=== PATIENT | male | born 1955 | race Caucasian/White ===

== ENCOUNTER 2020-04-03 21:54 | Emergency (ER) | payer MEDICARE, SELFPAY ==
--- NOTE | ~2020-04-03 | XR_ITS ---
EXAMINATION: XR knee RT 3V DATE: 04/03/2020 23:39 INDICATION: Nontraumatic medial and lateral right knee pain TECHNIQUE: Anteroposterior, 2 oblique and crosstable lateral views of the right knee were obtained COMPARISON: None. FINDINGS: Alignment is normal. No fracture. Joint spaces appear normal on nonweightbearing imaging. Tiny ossif ication along the lateral side of the lateral femoral condyle which could represent sequela of old tr auma. Minimal right knee joint effusion at the suprapatellar pouch without layering lipohemarthrosis. Vascular stent posterior to the proximal right tibia. Soft tissues are otherwise unremarkable. IMPRESSION: 1. No osseous abnormality. Reviewed, dictated and finalized at location A. IMPRESSION: 1. No osseous abnormality.
[2020-04-03 22:16] VITALS: BP 194/91; PULSE 72; RESP 14; TEMP 37.1; O2SAT 97
--- NOTE | 2020-04-03 22:18 | ED.EXTPRO ---
HPI - Extremity Problem General Chief complaint: Extremity Injury, Lower Stated complaint: R leg pain Time Seen by Provider: 04/03/20 22:18 Source: patient Mode of arrival: wheelchair Limitations: no limitations History of Present Illness HPI Narrative: 64-year-old man with a history of peripheral vascular disease with stents comes in today complaining of pain behind his right knee, down his calf and throbbing in his foot that started approximately 7 hours ago. Patient states that he was walking when the pain started. He did not feel a pop. States that the pain is worsened by ambulation and movement. One year ago he had stents in his right leg for peripheral vascular disease. Until this afternoon he was doing fine including working around the house this morning. He denies any falls or injuries. MD Complaint: extremity pain Onset (ago): hour(s) (6-7) Pain Consistency: constant Location: right and lower extremity Quality: sharp Radiation: distal Relieving factors: rest Exacerbating factors: range of motion and weight bearing Associated symptoms: chest pain and shortness of breath Context: history of peripheral vascular disease Related Data Home Medications Medication Instructions Recorded Confirmed B Complex-Vitamin B12 1 cap BYMOUTH DAILY 04/03/20 04/03/20 aspirin 81 mg PO DAILY 04/03/20 04/03/20 finasteride 5 mg PO DAILY 04/03/20 04/03/20 glimepiride 1 mg PO DAILY 04/03/20 04/03/20 lamotrigine 200 mg PO DAILY 04/03/20 04/03/20 levothyroxine [Euthyrox] 75 mcg PO DAILY 04/03/20 04/03/20 metoprolol succinate 100 mg PO DAILY 04/03/20 04/03/20 rosuvastatin 5 mg PO HS 04/03/20 04/03/20 Allergies Allergy/AdvReac Type Severity Reaction Status Date / Time No Known Allergies Allergy Verified 04/03/20 22:22 Review of Systems Constitutional: Constitutional: Denies chills, Denies fever(s) and Denies weakness Cardiovascular: Cardiovascular: Denies chest pain and Denies radiating jaw, neck or arm pain Respiratory: Respiratory: Denies cough and Denies dyspnea Musculoskeletal: Musculoskeletal: Reports as per HPI, Reports arthralgias and Denies joint swelling Integumentary/Breasts: Skin/Breast: Denies pruritus, Denies erythema and Denies rash Neurologic: Denies vertigo, Denies dizziness, Denies syncope and Reports numbness (on plantar aspect of right distal foot) Psychiatric: Psychiatric: Denies anxiety and Denies depression Hematologic/Lymphatic: Hematologic/Lymphatic: Denies easy bleeding and Denies easy bruising Allergic/Immunologic: Allergic/Immunologic: Denies lip swelling and Denies wheezing PMFSH Past Medical History Medical History BPH (benign prostatic hyperplasia) Dyslipidemia Hypertension Hypothyroidism Peripheral vascular disease Type 2 diabetes mellitus Surgical History Surgical History Popliteal artery stenosis Stent Social History Social History Smoking status: Former smoker Exam Const: General: alert Orientation/consciousness: patient oriented x3 Limitations: no limitations Other: Moderate acute distress. Eyes: Conjunctivae: conjunctivae normal Pupils: Equal, round and reactive pupils present EOM: EOMs intact bilaterally Resp: Effort & Inspection: normal respiratory effort and not labored Auscultation: clear to auscultation bilaterally, no rales, no rhonchi and no wheezes Cardio: Rate: regular rate Rhythm: regular rhythm Heart sounds: no murmurs Skin: General skin exam: normal color, no jaundice and no pallor Rashes: no rashes Neuro: General: patient oriented x3, moves all extremities, no focal motor deficits and CN's II-XI intact bilaterally Speech: normal speech Extrem: General: normal to inspection and no clubbing, cyanosis or edema Other: Distal lower extremities are warm dry and have 2nd capillary refi
[2020-04-03 22:45] LABS: Basophils Absolute Auto 0.06 K/mm3 (0.00-0.10); Basophils Percent Auto 0.8 % (0.0-1.0); Eosinophils Absolute Auto 0.17 K/mm3 (0.02-0.50); Eosinophils Percent Auto 2.2 % (1.0-6.0); Hematocrit 43.6 % (37.0-46.0); Hemoglobin 14.8 g/dL (12.4-15.3); Immature Granulocyte Absolute 0.02 K/mm3 (0.00-0.00); Immature Granulocyte Percent A 0.3 % (0.0-0.0); Lymphocytes Absolute Auto 1.27 K/mm3 (1.10-4.50); Lymphocytes Percent Auto 16.2 % (18.0-42.0); Mean Corpuscular HGB Conc 33.9 g/dL (32.0-36.0); Mean Corpuscular Hemoglobin 33.4 pg (27.0-31.0); Mean Corpuscular Volume 98.4 fL (78.0-102.0); Mean Platelet Volume 9.4 fl (8.7-11.0); Monocytes Absolute Auto 0.57 K/mm3 (0.10-0.90); Monocytes Percent Auto 7.3 % (2.0-11.0); Neutrophils Absolute Auto 5.8 K/mm3 (1.7-7.2); Neutrophils Percent Auto 73.2 % (50.0-70.0); Platelet Count Result 214 K/mm3 (150-420); Red Blood Count 4.43 M/mm3 (4.70-6.10); Red Cell Distribution Width 12.5 % (11.6-14.4); White Blood Count 7.8 K/mm3 (4.8-10.8)
[2020-04-03 23:00] LABS: Alanine Aminotransferase 23 U/L (16-63); Albumin Level 3.5 g/dL (3.4-5.0); Alkaline Phosphatase 105 U/L (46-116); Anion Gap 12.1 mmol/L (7-16); Aspartate Amino Transferase 15 U/L (15-37); Bilirubin,Total 0.3 mg/dL (0.00-1.00); Blood Urea Nitrogen 23 mg/dL (7-18); Calcium 8.6 mg/dL (8.5-10.1); Carbon Dioxide 29 mmol/L (21-32); Chloride 104 mmol/L (98-108); Estimated CRCL calculation 68 ml/min; Estimated Glomerular Filt Rate > 60; Glucose 138 mg/dL (70-99); Osmolality Calculated 297 mOsm/kg (285-295); Potassium 4.1 mmol/L (3.5-5.1); Sodium 141 mmol/L (136-145); Total Protein 6.6 g/dL (6.4-8.2)
[2020-04-03 23:03] LABS: D Dimer 0.33 mg/L (0.19-0.50); Partial Thromboplastin Time 28.2 SEC (22.3-31.6); Prothrombin Time 10.6 Seconds (9.64-11.0)
--- NOTE | 2020-04-03 23:14 | PC.NURSE ---
DR. JACOBS, VASCULAR SURGEON FROM [facility], CONTACTED AT THIS TIME INSTRUCTED BY ERP.
[2020-04-03 23:33] VITALS: BP 170/74; PULSE 63; RESP 18; O2SAT 96
[2020-04-03 23:35] LABS: CRP 0.4 mg/dL (0.0-0.9)
[2020-04-04 00:10] VITALS: BP 175/80; PULSE 85; RESP 20; TEMP 36.6; O2SAT 97
== END 2020-04-04 00:26 | disposition home or self-care (01) ==
PROVIDERS: Emergency Provider Emergency Medicine; PCP Internal Medicine
DX: M25.561 Pain in right knee (principal)
CPT/HCPCS: 36415; 73562; 80053; 85025; 85380; 85610; 85730; 86140; 99283; 99284; A9270

== ENCOUNTER 2020-10-13 12:38 | Outpatient (CLI) | payer MEDICARE, SELFPAY ==
[2020-10-14 18:38] LABS: SARS-CoV-2 RNA PCR Negative
== END 2020-10-13 12:39 | disposition home or self-care (01) ==
LOC: CHSLAB 12:45
PROVIDERS: PCP Internal Medicine
DX: Z20.828 Contact with and (suspected) exposure to other viral communicable diseases (principal)
CPT/HCPCS: 87635; C9803; U0003

== ENCOUNTER 2021-05-24 06:54 | Outpatient (CLI) | payer MEDICARE, SELFPAY ==
--- NOTE | ~2021-05-24 | MR_ITS ---
EXAMINATION: MR brain/brain stem wo/w con DATE: 05/24/2021 08:51 INDICATION: Diplopia. Visual field defect. TECHNIQUE: Magnetic resonance imaging (MRI) of the brain and brainstem was performed without and with 20 mL MultiHance intravenous contrast. Sequences included sagittal and axial T1-weighted FSE, axial diffusion-weighted FS EPI, axial T2*-weighted GRE, axial T2-weighted FLAIR Propeller, and axial T2-we ighted Propeller. Postcontrast sequences included axial and coronal T1-weighted FSE. Apparent diffusi on coefficient (ADC) maps were created. COMPARISON: Brain MRI 02/27/2012 FINDINGS: There are scattered areas of nonspecific increased T2-weighted signal intensity in the cere bral white matter, which is within normal limits for the patient's age. 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 There is no intracranial hemorrhage, acute infarction, or abnormal in tracranial mass lesion. The ventricles are normal in size. The orbits are normal. The mastoid air july ls are normal. The paranasal sinuses are clear. IMPRESSION: 1. 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 Reviewed, dictated and finalized at location A.
[2021-05-24 07:31] LABS: Estimated Glomerular Filt Rate > 60
== END 2021-05-24 06:55 | disposition home or self-care (01) ==
LOC: CHSIMG 06:59
PROVIDERS: PCP Internal Medicine; Visit Provider Internal Medicine
DX: H53.2 Diplopia (principal); H53.40 Unspecified visual field defects
CPT/HCPCS: 70553; A9577

== ENCOUNTER 2021-06-28 08:06 | Outpatient (CLI) | payer MEDICARE, SELFPAY ==
--- NOTE | ~2021-06-28 | US_ITS ---
US right upper quadrant INDICATION: Epigastric and right upper quadrant pain PROCEDURE: Realtime right upper abdominal ultrasound. COMPARISON: Ultrasound dated 11/05/2016 FINDINGS: The pancreas is normal without focal mass or pancreatic ductal dilation. Liver echotexture is normal without focal mass or intrahepatic biliary dilatation. There is normal directional flow i n the portal vein. The gallbladder is normal without stones, gallbladder wall thickening or pericholecystic fluid. Comm on bile duct measures 2.3 mm. No sonographic Mcmullen's sign. IMPRESSION: 1: Normal limited abdominal ultrasound. Reviewed, dictated and finalized at location A.
== END 2021-06-28 08:07 | disposition home or self-care (01) ==
LOC: CHSIMG 08:07
PROVIDERS: PCP Internal Medicine; Visit Provider Internal Medicine
DX: R10.13 Epigastric pain (principal)
CPT/HCPCS: 76705

== ENCOUNTER 2021-06-30 07:42 | Outpatient (CLI) | payer MEDICARE, SELFPAY ==
--- NOTE | ~2021-06-30 | US_ITS ---
CANCELED REPORT Report moved to [id number], DOS 06/28/2021 06/30/2021 sef Addendum: Additional views of the abdomen were performed. Gallbladder is contracted, although no stones, gallbladder wall thickening or pericholecystic fluid are identified. Common bile duct measures 3 mm. Visualized aspects of the pancreas are unremarkable. There is normal directional flow in the portal vein. Findings confirm prior report from 06/28/2021. Reviewed, dictated and finalized at location A. FREDIS
== END 2021-06-30 07:43 | disposition home or self-care (01) ==
LOC: CHSIMG 07:44
PROVIDERS: PCP Internal Medicine; Visit Provider Internal Medicine
DX: R10.13 Epigastric pain (principal); R10.11 Right upper quadrant pain; Z53.8 Procedure and treatment not carried out for other reasons
CPT/HCPCS: 99199

== ENCOUNTER 2022-04-23 15:01 | Emergency (ER) | payer MEDICARE, SELFPAY ==
--- NOTE | ~2022-04-23 | XR_ITS ---
XR chest 1V portable 04/23/2022 16:19 Indication: Shortness of breath with hypertension Procedure: AP portable chest Comparison: Comparison to multiple prior studies sequentially, with oldest reviewed study dated 11/24. Findings: Borderline heart size. Right basilar infiltrates and small right pleural effusion/pleural t hickening unchanged. No acute focal pneumonia, edema or effusion. Calcified granuloma left mid thorax . Impression: 1: No acute cardiopulmonary disease. 2: Chronic right basilar infiltrates, likely atelectasis/scarring. Reviewed, dictated and finalized at location A. Impression: 1: No acute cardiopulmonary disease. 2: Chronic right basilar infiltrates, likely atelectasis/scarring.
[2022-04-23 15:10] VITALS: BP 185/98; PULSE 60; RESP 16; TEMP 36.2; O2SAT 96
--- NOTE | 2022-04-23 15:26 | ED.GENADULT ---
HPI - General Adult General Chief complaint: Unspecified Stated complaint: sent by doctor for high blood pressure Time Seen by Provider: 04/23/22 15:26 Source: patient Mode of arrival: ambulatory History of Present Illness HPI narrative: 66-year-old male with a history of hypertension, diabetes mellitus, dyslipidemia, LADONNA on CPAP, peripheral vascular disease status post bilateral leg stents, status post right carotid endarterectomy, with claudication of the left lower extremity and awaiting a vascular bypass surgery of the left lower extremity was noted to -- elevated blood pressure readings. It was noted to be around 200/100. The patient has had high blood pressure readings for the past 7-10 days. -- Shortness of breath. The patient was noted to have an oxygen saturation of -- no chest pain. Onset (ago): day(s) ( Off and on for the past 10 days) Related Data Home Medications Medication Instructions Recorded Confirmed B Complex-Vitamin B12 1 cap BYMOUTH DAILY 04/03/20 04/23/22 aspirin 81 mg chewable tablet 81 mg PO DAILY 04/03/20 04/23/22 finasteride 5 mg tablet 5 mg PO DAILY 04/03/20 04/23/22 glimepiride 1 mg tablet 1 mg PO DAILY 04/03/20 04/23/22 lamotrigine 200 mg tablet 200 mg PO DAILY 04/03/20 04/23/22 levothyroxine 75 mcg tablet 75 mcg PO DAILY 04/03/20 04/23/22 (Euthyrox) metoprolol succinate 100 mg 100 mg PO DAILY 04/03/20 04/23/22 tablet,extended release 24 hr rosuvastatin 5 mg tablet 5 mg PO HS 04/03/20 04/23/22 clopidogrel 75 mg tablet (Plavix) 75 mg PO DAILY 06/07/21 04/23/22 Allergies Allergy/AdvReac Type Severity Reaction Status Date / Time No Known Allergies Allergy Verified 04/23/22 15:23 Review of Systems Review of Systems: All systems reviewed & are unremarkable except as noted in HPI and below Constitutional: Constitutional: Reports as per HPI and Reports no additional constitutional complaints Eyes: Eyes: Reports as per HPI and Reports no additional eye complaints ENT: Reports system reviewed and no additional complaints, except as documented and Reports as per HPI Cardiovascular: Cardiovascular: Reports as per HPI and Reports no additional cardiovascular complaints Respiratory: Respiratory: Reports as per HPI, Reports no additional respiratory complaints and Reports dyspnea Comments: Had difficulty using his CPAP machine secondary to congestion Gastrointestinal: Gastrointestinal: Reports as per HPI and Reports no additional gastrointestinal complaints Genitourinary: Genitourinary: Reports no additional male genitourinary complaints Musculoskeletal: Musculoskeletal: Reports no additional musculoskeletal complaints Integumentary/Breasts: Skin/Breast: Reports system reviewed and no additional complaints, except as docu and Reports as per HPI Neurologic: Reports system reviewed and no additional complaints, except as documented and Reports as per HPI Psychiatric: Psychiatric: Reports no additional psychiatric complaints and Reports as per HPI Endocrine: Endocrine: Reports no additional endocrine complaints and Reports as per HPI Hematologic/Lymphatic: Hematologic/Lymphatic: Reports no additional hematologic/lymphatic complaints and Reports as per HPI Allergic/Immunologic: Allergic/Immunologic: Reports no additional allergic/immunologic complaints and Reports as per HPI [facility] Past Medical History Medical History (Updated 04/23/22 @ 17:17 by Zachery Madera MD) BPH (benign prostatic hyperplasia) Dyslipidemia Hypertension Hypothyroidism Peripheral vascular disease Type 2 diabetes mellitus Surgical History Surgical History Popliteal artery stenosis Stent Social History Social History Smoking status: Former smoker Alcohol intake: current Exam Const: General: healthy appearing and no acute distress Nutritional Appearance: well nourished [place]
--- NOTE | 2022-04-23 15:44 | ECG_ITS ---
Measurements Intervals [place] Rate: 51 P: 38 IA: 181 QRS: 41 QRSD: 109 T: 35 QT: 422 QTc: 389 Interpretive Statements SINUS BRADYCARDIA DELAYED PRECORDIAL R/S TRANSITION BORDERLINE ECG Electronically Signed On 04-23-2022 16:56:55 CDT by Ronald Ferrer D.O.
[2022-04-23] MEDS: cloNIDine HCL 0.1 MG TABLET PO (16:04)
[2022-04-23 16:05] VITALS: BP 168/84; PULSE 61; RESP 16; O2SAT 97
[2022-04-23 16:09] LABS: Basophils Absolute Auto 0.05 K/mm3 (0.00-0.10); Eosinophils Absolute Auto 0.13 K/mm3 (0.02-0.50); Eosinophils Percent Auto 2.6 % (1.0-6.0); Hematocrit 43.9 % (37.0-46.0); Hemoglobin 14.4 g/dL (12.4-15.3); Immature Granulocyte Absolute 0.01 K/mm3 (0.00-0.00); Immature Granulocyte Percent A 0.2 % (0.0-0.0); Lymphocytes Absolute Auto 1.19 K/mm3 (1.10-4.50); Lymphocytes Percent Auto 23.8 % (18.0-42.0); Mean Corpuscular HGB Conc 32.8 g/dL (32.0-36.0); Mean Corpuscular Hemoglobin 32.3 pg (27.0-31.0); Mean Corpuscular Volume 98.4 fL (78.0-102.0); Monocytes Absolute Auto 0.47 K/mm3 (0.10-0.90); Monocytes Percent Auto 9.4 % (2.0-11.0); Neutrophils Absolute Auto 3.2 K/mm3 (1.7-7.2); Platelet Count Result 179 K/mm3 (150-420); Red Blood Count 4.46 M/mm3 (4.70-6.10); Red Cell Distribution Width 12.5 % (11.6-14.4)
[2022-04-23 16:31] LABS: Partial Thromboplastin Time 28.1 SEC (23.90-30.70); Prothrombin Time 11.4 Seconds (9.50-12.10)
[2022-04-23 16:34] LABS: Alanine Aminotransferase 33 U/L (16-63); Albumin Level 3.7 g/dL (3.4-5.0); Alkaline Phosphatase 73 U/L (46-116); Anion Gap 6 mmol/L (8-16); Aspartate Amino Transferase 12 U/L (15-37); Bilirubin,Total 0.7 mg/dL (0.00-1.00); Blood Urea Nitrogen 25 mg/dL (7-18); Calcium 8.7 mg/dL (8.5-10.1); Carbon Dioxide 28 mmol/L (21-32); Chloride 104 mmol/L (98-108); Estimated CRCL calculation 72 ml/min; Estimated Glomerular Filt Rate > 60; Glucose 118 mg/dL (70-99); NT Pro B Type Natriuretic Pept 45 pg/mL (0-125); Osmolality Calculated 291 mOsm/kg (285-295); Potassium 4.2 mmol/L (3.5-5.1); Sodium 138 mmol/L (136-145); Total Protein 6.7 g/dL (6.4-8.2)
[2022-04-23 16:37] LABS: Lactic Acid Reflex 0.9 mmol/L (0.4-2.0)
[2022-04-23 17:06] LABS: Troponin I 5.9 ng/L (0.00-60.4)
[2022-04-23 17:10] VITALS: BP 165/88; PULSE 59; RESP 16; TEMP 37; O2SAT 98
[2022-04-23 17:20] VITALS: BP 155/83; PULSE 59; RESP 16
== END 2022-04-23 17:30 | disposition home or self-care (01) ==
PROVIDERS: Emergency Provider Internal Medicine Critical Care Medicine; PCP Internal Medicine
DX: I73.9 Peripheral vascular disease, unspecified (principal); I16.0 Hypertensive urgency; R00.1 Bradycardia, unspecified; R06.02 Shortness of breath; E78.5 Hyperlipidemia, unspecified; E03.9 Hypothyroidism, unspecified; E11.9 Type 2 diabetes mellitus without complications; Z87.891 Personal history of nicotine dependence
CPT/HCPCS: 36415; 71045; 80053; 83605; 83880; 84443; 84484; 85025; 85610; 85730; 93005; 99284; A9270

== ENCOUNTER 2022-08-22 08:00 | Outpatient (RCR) | payer MEDICARE, SELFPAY | END 2022-08-22 14:37 | disposition home or self-care (01) | PROVIDERS: PCP Internal Medicine; Visit Provider Internal Medicine | DX: I70.213 Atherosclerosis of native arteries of extremities with intermittent claudication, bilateral legs (principal) | CPT/HCPCS: 93668; 93798 ==

== ENCOUNTER 2023-08-26 11:38 | Outpatient (CLI) | payer MEDICARE, SELFPAY ==
--- NOTE | ~2023-08-26 | NM_ITS ---
EXAMINATION: NM hepatobiliary w pharm DATE: 08/26/2023 14:25 INDICATION: Right upper quad abdominal pain COMPARISON: Outside dated 06/28/2021 TECHNIQUE: 4.9 mCi Tc-99m mebrofenin (Choletec) was administered intravenously. Scintigraphic images of the abdomen were obtained for one hour. 1.7 mcg sincalide (Kinevac) was administered by slow intr avenous infusion, and imaging was continued for 30 minutes. Gallbladder ejection fraction was calcula guillermo by the technologist. FINDINGS: There is normal clearance of radiotracer from the blood pool. There is homogeneous tracer uptake by t he liver. Activity progresses to the gallbladder and bowel. The gallbladder ejection fraction (GBEF) is 27% (normal 10-90%, but most patient with gallbladder dysfunction have GBEF < 35% which does over lap with the normal range). IMPRESSION: 1. Gallbladder ejection fraction is at the lower limits of normal. This could be normal but is also within the range of overlap with gallbladder dysfunction or chronic cholecystitis in the appropriate clinical setting. Reviewed, dictated and finalized at location A. 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
== END 2023-08-26 11:39 | disposition home or self-care (01) ==
LOC: CHSIMG 11:40
PROVIDERS: PCP Internal Medicine; Visit Provider Internal Medicine
DX: R10.11 Right upper quadrant pain (principal)
CPT/HCPCS: 78227; A9537; J2805

== ENCOUNTER 2023-09-12 03:05 | Day surgery (SDC) | payer MEDICARE, SELFPAY ==
[2023-09-02 10:57] VITALS: BMI 28.6
--- NOTE | 2023-09-10 12:53 | SUR.PREOP ---
Patient called regarding upcoming procedure. Message left on patient's voicemail regarding preop instructions, appointment times, and procedure prep.
[2023-09-12 08:35] VITALS: BP 155/92; PULSE 55; RESP 18; TEMP 36.1; O2SAT 95; BMI 29.6
[2023-09-12 08:58] LABS: Glucose Point of Care 148 mg/dl (65-105)
--- NOTE | 2023-09-12 09:50 | WPDANESEPPF ---
Anes - Initial Pre Proc Eval Procedure: Operation Date: 09/12/23 09:30 Proposed Procedures p Esophagogastroduodenoscopy - Andrey Quinn DO Date/Time: 09/12/23 09:50 Surgeon: Andrey Quinn DO Pre Op Diagnosis: Dysphagia Patient Data Age: 68 Gender: M Height: 1.75 m Weight: 91 kg Last Vital Signs Temp 96.9 F L 09/12/23 08:35 Pulse 55 L 09/12/23 08:35 Resp 18 09/12/23 08:35 BP 155/92 H 09/12/23 08:35 Pulse Ox 95 09/12/23 08:35 O2 Del Method Room Air 09/12/23 08:35 Allergies Allergy/AdvReac Type Severity Reaction Status Date / Time No Known Allergies Allergy Verified 09/12/23 08:41 Home Medications Medication Instructions Recorded Confirmed Type B Complex-Vitamin B12 1 cap BYMOUTH DAILY 04/03/20 09/12/23 History finasteride 5 mg tablet 5 mg PO DAILY 04/03/20 09/12/23 History lamotrigine 200 mg tablet 100 mg PO DAILY 04/03/20 09/12/23 History levothyroxine 75 mcg tablet 75 mcg PO DAILY 04/03/20 09/12/23 History (Euthyrox) metoprolol succinate 100 mg 50 mg PO DAILY 04/03/20 09/12/23 History tablet,extended release 24 hr rosuvastatin 5 mg tablet 2.5 mg PO HS 04/03/20 09/12/23 History clopidogrel 75 mg tablet (Plavix) 75 mg PO DAILY 06/07/21 09/12/23 History amlodipine 2.5 mg tablet (Norvasc) 5 mg PO DAILY 09/02/23 09/12/23 History metformin 500 mg tablet 500 mg PO DAILY 09/02/23 09/12/23 History Laboratory Tests 09/12/23 08:56 POC Capillary Glucose 148 H mg/dl (65-105) Patient hx anesthesia problems: none Family hx anesthesia problems: none Results Review: All pre-operative results and documents have been reviewed as part of the pre-operative evaluation. [facility] Past Medical History Medical History (Updated 04/24/22 @ 00:00 by Background Dabetty) BPH (benign prostatic hyperplasia) Dyslipidemia Hypertension Hypothyroidism Peripheral vascular disease Type 2 diabetes mellitus Surgical History Surgical History Popliteal artery stenosis Stent Social History Social History Smoking status: Never smoker Alcohol intake: current Alcohol use details: On rare occasions Substance use: current Substance use type: marijuana Other substance usage details: uses gummies Last use: 07/2023 Living arrangements: alone Anes - Eval Final PreProcedure Day of Procedure 09/12/23 09:50 Patient weight: normal Heart: regular rate and rhythm Lungs: clear to auscultation Airway: Mallampati scale class II Neurological: alert and oriented Last oral intake: >/= 8 hours ASA classification: III Emergent: no Anesthetic plan: proceed Anesthesia type and monitoring: general GIVS and standard monitoring Results Review: All pre-operative results and documents have been reviewed as part of the pre-operative evaluation. Informed Consent: The patient's anesthetic plan and its attendant risks and benefits were discussed with the patient/family/POA. Questions were solicited and answers provided to the satisfaction of the patient/family/POA.
[2023-09-12] MEDS: LACTATED RINGERS 1,000 ML 150 ML IV CONT (09:58)
--- NOTE | 2023-09-12 10:00 | PM.IMHP ---
H&P: HPI History of Present Illness Date/Time: 09/12/23 10:00 Chief Complaint: Dysphagia Narrative: This is a 68-year-old man presents for EGD. He has been experiencing some dysphagia with certain solid foods. He feels that it gets stuck his sternum. He has noticed this in particular with tuna and carrots. He denies any acid reflux or heartburn symptoms. Review of Systems Review of Systems: All systems reviewed & are unremarkable except as noted in HPI and below Constitutional: Constitutional: Denies chills, Denies fever(s), Denies headache(s) and Denies weight loss Eyes: Eyes: Denies change in vision ENT: Denies dizziness, Denies headache(s), Denies neck mass and Denies throat swelling Cardiovascular: Cardiovascular: Denies chest pain, Denies lightheadedness and Denies dyspnea Respiratory: Respiratory: Denies cough, Denies dyspnea and Denies wheezing Gastrointestinal: Gastrointestinal: Denies abdominal pain, Denies change in bowel habits, Denies nausea and Denies vomiting Genitourinary: Genitourinary: Denies hematuria and Denies dysuria Musculoskeletal: Musculoskeletal: Reports as per HPI Integumentary/Breasts: Skin/Breast: Reports as per HPI Neurologic: Denies dizziness and Denies headache(s) Allergic/Immunologic: Allergic/Immunologic: Denies throat swelling and Denies wheezing [facility] Past Medical History Medical History (Updated 09/12/23 @ 10:01 by Andrey Quinn DO) BPH (benign prostatic hyperplasia) Dyslipidemia Hypertension Hypothyroidism Peripheral vascular disease Type 2 diabetes mellitus Surgical History Surgical History Popliteal artery stenosis Stent Social History Social History Smoking status: Never smoker Alcohol intake: current Alcohol use details: On rare occasions Substance use: current Substance use type: marijuana Other substance usage details: uses gummies Last use: 07/2023 Living arrangements: alone Meds Home Medications and Allergies Home Medications Medication Instructions Recorded Confirmed Type B Complex-Vitamin B12 1 cap BYMOUTH DAILY 04/03/20 09/12/23 History finasteride 5 mg tablet 5 mg PO DAILY 04/03/20 09/12/23 History lamotrigine 200 mg tablet 100 mg PO DAILY 04/03/20 09/12/23 History levothyroxine 75 mcg tablet 75 mcg PO DAILY 04/03/20 09/12/23 History (Euthyrox) metoprolol succinate 100 mg 50 mg PO DAILY 04/03/20 09/12/23 History tablet,extended release 24 hr rosuvastatin 5 mg tablet 2.5 mg PO HS 04/03/20 09/12/23 History clopidogrel 75 mg tablet (Plavix) 75 mg PO DAILY 06/07/21 09/12/23 History amlodipine 2.5 mg tablet (Norvasc) 5 mg PO DAILY 09/02/23 09/12/23 History metformin 500 mg tablet 500 mg PO DAILY 09/02/23 09/12/23 History Allergies Allergy/AdvReac Type Severity Reaction Status Date / Time No Known Allergies Allergy Verified 09/12/23 08:41 Vital Signs Vital Signs - 24 hr 09/12/23 08:35 Temperature 36.1 C L Pulse Rate 55 L Respiratory Rate 18 Blood Pressure 155/92 H Pulse Oximetry 95 Oxygen Delivery Room Air Exam Const: General: no acute distress and alert Orientation/consciousness: patient oriented x3 HENMT: Head: normocephalic and atraumatic Ears: hearing grossly normal bilaterally Face/Nose/Sinus: Normal nares present Mouth: Yes Normal oral and palatal mucosa present Eyes: Periorbital: periorbital findings normal Sclera: sclerae normal EOM: EOMs intact bilaterally Neck: Neck: normal visual inspection, no lymphadenopathy and trachea midline Chest: Chest palpation & inspection: normal inspection of the chest Resp: Effort & Inspection: normal respiratory effort Auscultation: clear to auscultation bilaterally Cardio: Jugular venous distension: no JVD Rate: regular rate Rhythm: regular rhythm Heart sounds: S1 normal heart sound present and S2 normal heart sound presen
[2023-09-12 10:22] VITALS: BP 113/68; PULSE 54; RESP 19; O2SAT 98
[2023-09-12 10:32] VITALS: BP 124/69; PULSE 52; RESP 20; O2SAT 99
[2023-09-12 10:42] VITALS: BP 127/73; PULSE 59; RESP 19; O2SAT 97
== END 2023-09-12 10:48 | disposition home or self-care (01) ==
PROVIDERS: PCP Internal Medicine; Visit Provider Surgery
PROC: 0DJ08ZZ Inspection of Upper Intestinal Tract, Via Natural or Artificial Opening Endoscopic (ICD-10-PCS; CPT 43235; principal; 2023-09-12 09:30)
DX: K20.90 Esophagitis, unspecified without bleeding (principal); I10 Essential (primary) hypertension; E78.5 Hyperlipidemia, unspecified; E03.9 Hypothyroidism, unspecified; E11.51 Type 2 diabetes mellitus with diabetic peripheral angiopathy without gangrene; N40.0 Benign prostatic hyperplasia without lower urinary tract symptoms; Z95.820 Peripheral vascular angioplasty status with implants and grafts; F12.90 Cannabis use, unspecified, uncomplicated; Z79.02 Long term (current) use of antithrombotics/antiplatelets; Z79.84 Long term (current) use of oral hypoglycemic drugs
CPT/HCPCS: 43239; 82948; 88305; J2704; J7120

== ENCOUNTER 2024-01-14 02:12 | Day surgery (SDC) | payer MEDICARE, SELFPAY ==
[2024-01-09 15:20] VITALS: BMI 29.6
[2024-01-14 08:16] VITALS: BP 123/78; PULSE 73; RESP 16; TEMP 36.1; O2SAT 98
[2024-01-14] MEDS: LACTATED RINGERS 1,000 ML 150 ML IV CONT (08:25)
[2024-01-14 08:29] LABS: Glucose Point of Care 146 mg/dl (65-105)
--- NOTE | 2024-01-14 08:31 | WPDANESEPPF ---
Anes - Initial Pre Proc Eval Procedure: Operation Date: 01/14/24 09:30 Proposed Procedures p Screening Colonoscopy - Andrey Quinn DO Date/Time: 01/14/24 08:31 Surgeon: Andrey Quinn DO Pre Op Diagnosis: History of prior colon polyps Patient Data Age: 68 Gender: M Height: 1.75 m Weight: 89.3 kg Last Vital Signs Temp 97 F L 01/14/24 08:16 Pulse 73 01/14/24 08:16 Resp 16 01/14/24 08:16 BP 123/78 01/14/24 08:16 Pulse Ox 98 01/14/24 08:16 O2 Del Method Room Air 01/14/24 08:16 Allergies Allergy/AdvReac Type Severity Reaction Status Date / Time No Known Allergies Allergy Verified 01/14/24 08:15 Home Medications Medication Instructions Recorded Confirmed Type B Complex-Vitamin B12 1 cap BYMOUTH DAILY 04/03/20 01/09/24 History finasteride 5 mg tablet 5 mg PO DAILY 04/03/20 01/09/24 History lamotrigine 200 mg tablet 100 mg PO DAILY 04/03/20 01/09/24 History levothyroxine 75 mcg tablet 75 mcg PO DAILY 04/03/20 01/09/24 History (Euthyrox) metoprolol succinate 100 mg 50 mg PO DAILY 04/03/20 01/14/24 History tablet,extended release 24 hr rosuvastatin 5 mg tablet 2.5 mg PO HS 04/03/20 01/09/24 History clopidogrel 75 mg tablet (Plavix) 75 mg PO DAILY 06/07/21 01/09/24 History amlodipine 2.5 mg tablet (Norvasc) 5 mg PO DAILY 09/02/23 01/09/24 History metformin 500 mg tablet 500 mg PO DAILY 09/02/23 01/09/24 History pantoprazole 40 mg tablet,delayed 40 mg PO QAM #90 tabs 09/13/23 01/09/24 Rx release (Protonix) Laboratory Tests 01/14/24 08:23 POC Capillary Glucose 146 H mg/dl (65-105) Patient hx anesthesia problems: none Family hx anesthesia problems: none Results Review: All pre-operative results and documents have been reviewed as part of the pre-operative evaluation. [facility] Past Medical History Medical History (Updated 09/12/23 @ 10:01 by Andrey Quinn DO) BPH (benign prostatic hyperplasia) Dyslipidemia Hypertension Hypothyroidism Peripheral vascular disease Type 2 diabetes mellitus Surgical History Surgical History Popliteal artery stenosis Stent Social History Social History Smoking status: Former smoker Alcohol intake: current Alcohol use details: seldom Substance use: current Substance use type: marijuana Other substance usage details: used to do gummies Last use: 07/2023 Living arrangements: with family Spiritual care concerns: No Anes - Eval Final PreProcedure Day of Procedure 01/14/24 08:31 Patient weight: normal Heart: regular rate and rhythm Lungs: clear to auscultation Airway: Mallampati scale class II Neurological: alert and oriented Last oral intake: >/= 8 hours ASA classification: III Emergent: no Anesthetic plan: proceed Anesthesia type and monitoring: general GIVS and standard monitoring Results Review: All pre-operative results and documents have been reviewed as part of the pre-operative evaluation. Informed Consent: The patient's anesthetic plan and its attendant risks and benefits were discussed with the patient/family/POA. Questions were solicited and answers provided to the satisfaction of the patient/family/POA.
--- NOTE | 2024-01-14 09:52 | PM.IMHP ---
H&P: HPI History of Present Illness Date/Time: 01/14/24 09:52 Chief Complaint: Screening for colorectal cancer Narrative: This is a 68-year-old man who presents for colonoscopy. His last colonoscopy was about 10 years ago. He denies any hematochezia or melena. Denies family history of colon cancer. Review of Systems Review of Systems: All systems reviewed & are unremarkable except as noted in HPI and below Constitutional: Constitutional: Denies chills, Denies fever(s), Denies headache(s) and Denies weight loss Eyes: Eyes: Denies change in vision ENT: Denies dizziness, Denies headache(s), Denies neck mass and Denies throat swelling Cardiovascular: Cardiovascular: Denies chest pain, Denies lightheadedness and Denies dyspnea Respiratory: Respiratory: Denies cough, Denies dyspnea and Denies wheezing Gastrointestinal: Gastrointestinal: Denies abdominal pain, Denies change in bowel habits, Denies nausea and Denies vomiting Genitourinary: Genitourinary: Denies hematuria and Denies dysuria Musculoskeletal: Musculoskeletal: Reports as per HPI Integumentary/Breasts: Skin/Breast: Reports as per HPI Neurologic: Denies dizziness and Denies headache(s) Allergic/Immunologic: Allergic/Immunologic: Denies throat swelling and Denies wheezing [facility] Past Medical History Medical History (Updated 01/14/24 @ 09:53 by Andrey Quinn DO) BPH (benign prostatic hyperplasia) Dyslipidemia Hypertension Hypothyroidism Peripheral vascular disease Type 2 diabetes mellitus Surgical History Surgical History Popliteal artery stenosis Stent Social History Social History Smoking status: Former smoker Alcohol intake: current Alcohol use details: seldom Substance use: current Substance use type: marijuana Other substance usage details: used to do gummies Last use: 07/2023 Living arrangements: with family Spiritual care concerns: No Meds Home Medications and Allergies Home Medications Medication Instructions Recorded Confirmed Type B Complex-Vitamin B12 1 cap BYMOUTH DAILY 04/03/20 01/09/24 History finasteride 5 mg tablet 5 mg PO DAILY 04/03/20 01/09/24 History lamotrigine 200 mg tablet 100 mg PO DAILY 04/03/20 01/09/24 History levothyroxine 75 mcg tablet 75 mcg PO DAILY 04/03/20 01/09/24 History (Euthyrox) metoprolol succinate 100 mg 50 mg PO DAILY 04/03/20 01/14/24 History tablet,extended release 24 hr rosuvastatin 5 mg tablet 2.5 mg PO HS 04/03/20 01/09/24 History clopidogrel 75 mg tablet (Plavix) 75 mg PO DAILY 06/07/21 01/09/24 History amlodipine 2.5 mg tablet (Norvasc) 5 mg PO DAILY 09/02/23 01/09/24 History metformin 500 mg tablet 500 mg PO DAILY 09/02/23 01/09/24 History pantoprazole 40 mg tablet,delayed 40 mg PO QAM #90 tabs 09/13/23 01/09/24 Rx release (Protonix) Allergies Allergy/AdvReac Type Severity Reaction Status Date / Time No Known Allergies Allergy Verified 01/14/24 08:15 Vital Signs Vital Signs - 24 hr 01/14/24 08:16 Temperature 36.1 C L Pulse Rate 73 Respiratory Rate 16 Blood Pressure 123/78 Pulse Oximetry 98 Oxygen Delivery Room Air Exam Const: General: no acute distress and alert Orientation/consciousness: patient oriented x3 HENMT: Head: normocephalic and atraumatic Ears: hearing grossly normal bilaterally Face/Nose/Sinus: Normal nares present Mouth: Yes Normal oral and palatal mucosa present Eyes: Periorbital: periorbital findings normal Sclera: sclerae normal EOM: EOMs intact bilaterally Neck: Neck: normal visual inspection, no lymphadenopathy and trachea midline Chest: Chest palpation & inspection: normal inspection of the chest Resp: Effort & Inspection: normal respiratory effort Auscultation: clear to auscultation bilaterally Cardio: Jugular venous distension: no JVD Rate: regular rate Rhythm: regular rhythm Heart
[2024-01-14 10:24] VITALS: BP 121/70; PULSE 69; RESP 13; O2SAT 95
[2024-01-14 10:34] VITALS: BP 113/84; PULSE 68; RESP 18; O2SAT 94
[2024-01-14 10:44] VITALS: BP 129/83; PULSE 65; RESP 14; O2SAT 96
== END 2024-01-14 10:52 | disposition home or self-care (01) ==
PROVIDERS: PCP Internal Medicine; Visit Provider Surgery
PROC: 0DJD8ZZ Inspection of Lower Intestinal Tract, Via Natural or Artificial Opening Endoscopic (ICD-10-PCS; CPT 45378; principal; 2024-01-14 09:30)
DX: Z12.11 Encounter for screening for malignant neoplasm of colon (principal); D12.5 Benign neoplasm of sigmoid colon; K62.1 Rectal polyp; K57.30 Diverticulosis of large intestine without perforation or abscess without bleeding; I10 Essential (primary) hypertension; E78.5 Hyperlipidemia, unspecified; E03.9 Hypothyroidism, unspecified; E11.9 Type 2 diabetes mellitus without complications; N40.0 Benign prostatic hyperplasia without lower urinary tract symptoms; I73.9 Peripheral vascular disease, unspecified; F12.90 Cannabis use, unspecified, uncomplicated; Z79.02 Long term (current) use of antithrombotics/antiplatelets; Z79.84 Long term (current) use of oral hypoglycemic drugs; Z87.891 Personal history of nicotine dependence; Z86.79 Personal history of other diseases of the circulatory system
CPT/HCPCS: 45385; 82948; 88305; J2704; J7120

== ENCOUNTER 2024-12-22 11:56 | Outpatient (CLI) | payer MEDICARE, SELFPAY ==
--- NOTE | ~2024-12-22 | XR_ITS ---
XR chest 2V Ordering provider: Mónica Faulkner, LUBRICATION TECHNICIAN History: 69 years Male with . Flu B, Covid . Comparison: April 23, 2022 FINDINGS: MEDIASTINUM: The cardiac silhouette is not enlarged. LUNGS: No infiltrates, effusions or pneumothorax. Slightly prominent markings in the lower lobes. Nodule in the left midzone unchanged most likely a granuloma. OTHER: No free air under the diaphragm. Degenerative changes of the spine. IMPRESSION: Prominent markings in the lower lobes which may indicate residual infection. Follow-up advised. Reviewed, dictated and finalized at location A. IMPRESSION: Prominent markings in the lower lobes which may indicate residual infection. Fo llow-up advised.
--- OUTSIDE RECORDS SUMMARY | 2024-12-22 13:29 | XMS_ITS | Clinical Summary ---
Author Organization [facility] Address [address] [place] [id number] Care Team Providers Care Stock Buyer Name Role Phone Unavailable Primary Care Provider Unavailabl e Social History Tobacco Use Types Packs/Day Years Used Date Smoking Tobacco: Never Assessed Sex and Gender Information Value Date Recorded Sex Assigned at Not on file Legal Sex Male 8:23 PM CDT Gender Identity Not on file Sexual Orientation Not on file Plan of Treatment Health Maintenance Due Date Last Done Comments Colorectal Cancer Screening Colonoscopy (10 Years) 1953 Hepatitis C 1971 DTaP, Tdap and Td Vaccines ( 1 - Tdap) 1972 Zoster Vaccines (1 of 2) 2003 Pneumococcal Vaccine: 65+ Ye ars (1 of 1 - PCV) 2018 COVID-19 Vaccine ( - 2023-2 5 season) 2024 Influenza Adult (#1) 2024 RSV Immunization or 60+ Years (1 - 1-dose 75+ series) 2028 Meningococcal B Vaccine Aged Out No l onger eligible based on patient's age to complete this topic Meningococcal Vaccine Aged Out No marlon wendy eligible based on patient's age to complete this topic RSV Immunizations Under 20 Months Aged Out No longer eligible based on patient's age to complete this topic
--- OUTSIDE RECORDS SUMMARY | 2024-12-22 13:29 | XMS_ITS | Referral Summary ---
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 Anxiety 04/03/2012 Hypertension 04/03/2012 Benign prostatic hyperplasia 04/03/2012 Social History Tobacco Use Types Packs/Day Years Used Date Smoking Tobacco: Former Personal Safety Answer Date Recorded Getting School Help Needed Not on file 02/07 Sex and Gender Information Value Date Recorded Sex Assigned at Not on file 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 Gender Identity Not on file Sexual Orientation Not on file Last Filed Vital Signs Vital Sign Reading Time Taken Comments Blood Pressure 130/82 02/08/2024 7:54 PM CDT Pulse 80 02/08/2024 7:54 PM CDT Temperature 37 C (98.6 F) 02/08/2024 7:54 PM CDT Respiratory Rate 20 02/08/2024 7:54 PM CDT Oxygen Saturation 100% 02/08/2024 7:54 PM CDT Inhaled Oxygen Concentration - - Weight 91.2 kg (201 lb) 02/08/2024 7:54 PM CDT Height 177.8 cm (5' 10 ) 02/08/2024 7:54 PM CDT Body Mass Index 28.84 02/08/2024 7:54 PM CDT Plan of Treatment Not on file Insurance [employer] Care Teams Disease Case Manager Rn Relationship Specialty Start Date End Date Aroldo Stiles MD [address] [place] [address] PCP - General 06/10/13
--- OUTSIDE RECORDS SUMMARY | 2024-12-22 13:29 | XMS_ITS | Clinical Summary ---
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 Gender Identity Not on file Sexual Orientation Not on file Obstetrics History Last Filed Vital Signs Vital Sign Reading [...] 02/08/2024 7:54 PM CDT Plan of Treatment Health Maintenance Due Date Last Done Comments Colon Cancer Screening-Colonoscopy 1955 Depression Screening 1955 Fall Risk Assessment 1955 Hepatitis C Screening 1955 Hepatitis B Screening 1971 Zoster Vaccine (2 of 3) 08/28/2014 07/03/2014 Abdominal Aortic Aneurysm (A AA) Screen 2018 Well Visit 65+ 2018 Covid-19 Vaccine (2023-2 5 season) 2024 08/12/2023, 08/25/2021, 01/16/2021, Additional history exists Influenza Vaccine (#1) 2024 , 07/26/2022, 06/21/2021, Additional history exists DTaP/Tdap/Td Vaccine (3 - Td or Tdap) 12/26/2033 12/27/2023, 11/03/2013 Pneumococcal vaccine 65+ Completed 022, 10/26/2016, 10/18/2015 Insurance [employer] Care Teams Dishtank Operator Relationship Specialty Start Date End Date Aroldo Stiles MD [address] [place] [address] PCP - General 06/10/13
--- OUTSIDE RECORDS SUMMARY | 2024-12-22 13:29 | XMS_ITS | Clinical Summary ---
Author Organization [facility] Address [address] [place] [phone] Phone Care Team Providers Care Dipper Clock And Watch Hands Name Role Phone Aroldo Stiles MD Primary Care Provider + Allergies No known active allergies Medications CLOPIDOGREL BISULFATE (CLOPIDOGREL ORAL) Take 75 mg by mouth daily . Active ROSUVASTATIN CALCIUM (CRESTOR ORAL) Take 5 mg by mouth daily . Active METOPROLOL TARTRATE ORAL Take 100 mg by mouth daily . Active aspirin (TEO CHEWABLE) 81 mg Tablet, Chewable Take 81 mg by mouth daily. Active multivitamin (DAILY-DONTRELL) tablet Take by mouth daily. Active FINASTERIDE ORAL Take 5 mg by mouth daily . Active lamoTRIgine (LAMICTAL) 200 mg tablet Take 200 mg by mouth daily. Active levothyroxine 25 mcg tablet Take 25 mcg by mouth daily project manager process development. Active glimepiride (AMARYL) 1 mg tablet Take 5 mg by mouth daily with breakfast. Active famotidine (PEPCID) 20 mg tablet Take 1 Tablet (20 mg) by mouth 2 times daily. 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 Gender Identity Not on file Sexual Orientation Not on file Last Filed Vital Signs Vital Sign Reading Time Taken Comments Blood Pressure 108/65 01/13/2019 12:52 PM CDT Pulse 53 01/13/2019 12:52 PM CDT Temperature 36.4 C (97.6 F) 01/13/2019 12:32 PM CDT Respiratory Rate 21 01/13/2019 12:52 PM CDT Oxygen Saturation 93% 01/13/2019 12:52 PM CDT Inhaled Oxygen Concentration - - Weight 103.9 kg (229 lb) 01/13/2019 10:52 AM CDT Height 172.7 cm (5' 8 ) 01/13/2019 10:52 AM CDT Body Mass Index 34.82 01/13/2019 10:52 AM CDT Plan of Treatment Health Maintenance Due Date Last Done Comments DTAP/TDAP/TD VACCINES (1 - Tdap) 1972 FIT-DNA Q 3 years 1998 FIT/FOBT Q 1 year 1998 Flex Sig/CT Colonography Q 5 years 1998 PNEUMOCOCCAL VACCINE 50+ YEA RS (1 of 1 - PCV) 2003 ZOSTER VACCINE (1 of 2) 2003 COLORECTAL SCREENING 01/14/2024 01/13/2019, 01/13/2019, 01/13/2019, Additional history exists Colorectal Cancer Screening 01/14/2024 INFLUENZA VACCINE (#1) 2024 RSV VACCINE (60+ or ) (1 - 1-dose 75+ series) 2028 Procedures Procedure Name Priority Date/Time Associated Diagnosis Comments COLONOSCOPY REPORT 01/13/2019 12 :37 PM CDT from Last 3 Months or Most Recently Relevant to Health Maintenance Results * COLONOSCOPY REPORT (01/13/2019 12:37 PM CDT) Narrative Procedure Note Meño Roach MD - 01/13/2019 12:36 PM CDT [facility] Endoscopy Patient Name: Marcos Wilson Procedure Date: 01/13/2019 Date of : 1955 Admit Type: Outpatient Age: 63 Attending MD: Meño Roach MD Procedure: Colonoscopy Indications: High risk colon cancer surveillance: personal history of 9 colonic polyps on last colonoscopy 3 years ago. Providers: Meño Roach MD Referring MD: Aroldo Stiles MD Medicines: Propofol per Anesthesia Procedure: Informed consent was obtained for the procedure, including moderate sedation after risks were discussed. Based on the pre-procedure assessment, including review of the patient's medical history, medications, allergies, and review of systems, the patient was deemed to be an appropriate candidate for sedation. A timeout was performed. Continuous ECG monitoring, pulse oximetry, blood pressure monitoring, and direct observation were performed. The Colonoscope was introduced through the anus and advanced to the terminal ileum, with identification of the appendiceal orifice and IC valve. The colonoscopy was performed without difficulty. The patient tolerated the procedure well. The quality of the bowel preparation was good. At completion of the exam, the scope was advanced to the cecum and all residual air was removed. Estimated Blood Loss: Estimated blood loss: none. Findings: A 5 mm polyp was found in the sigmoid colon. The polyp was sessile. The polyp was removed with a cold snare. Resection and retrieval were complete. Multiple small-mouthed diverticula were found in the sigmoid colon. Internal hemorrhoids were found during retroflexion. The hemorrhoids were small. Complications: No immediate complications. Impression: - Small sigmoid polyp. Resected and retrieved. - Mild diverticulosis. - Internal hemorrhoids. Recommendation: - Await pathology results. Meño Roach MD 01/13/2019 12:36:25 PM This report has been signed electronically. Number of Addenda: 0 Procedure Date: 01/13/2019 11:50:[address] [place] [address] Meño Roach MD GI PROCEDURE ORDERABLES Final Re sult from Last 3 Months or Most Recently Relevant to Health Maintenance [place] [address] [place] [id number] Advance Directives For more information, please contact: [phone] * Full Code (Latest Code Status on File) Date Activated Date Inactivated Comments 01/13/2019 10:53 AM 01/13/2019 3:07 PM * Full Code Date Activated Date Inactivated Comments 12/13/2015 7:31 AM 12/13/2015 11:10 AM * Full Code Date Activated Date Inactivated Comments 10/17/2015 7:39 AM 10/17/2015 11:11 AM Care Teams Dipper Clock And Watch Hands Relationship Specialty Start Date End Date Aroldo Stiles MD [address] [place] [id number] PCP - General Internal Medicine 08/26/15
--- OUTSIDE RECORDS SUMMARY | 2024-12-22 13:29 | XMS_ITS | CONTINUITY OF CARE DOCUMENT ---
Author Name chacorta whatley Address Unknown Organization [facility] Address [address] [place] [address] [address] [place] [address] Phone [phone] Care Team Providers Care Button Inspector Name Role Phone chacorta whatley Unavailable Unavailable INSURANCE PROVIDERS Payer name Policy type / Coverage type [place] red democrat ID [id number] PAY [id number]
== END 2024-12-22 11:57 | disposition home or self-care (01) ==
PROVIDERS: PCP Internal Medicine; Visit Provider Nurse Practitioner Family
DX: U07.1 COVID-19 (principal); J10.1 Influenza due to other identified influenza virus with other respiratory manifestations; R91.8 Other nonspecific abnormal finding of lung field
CPT/HCPCS: 71046

== ENCOUNTER 2025-05-04 09:51 | Emergency (ER) | payer MEDICARE, SELFPAY ==
[2025-05-04] VITALS (31 sets, daily range): BP systolic 116–135; BP diastolic 72–91; PULSE 59–157; RESP 13–24; TEMP 35.9–36.8; O2SAT 94–98
--- NOTE | ~2025-05-04 | XR_ITS ---
XR chest 1V portable 05/04/2025 10:21 Indication: Tachycardia. Syncope. Chest pain. Procedure: AP portable chest Comparison: Comparison to multiple prior studies sequentially, with oldest reviewed study dated 02/24. Findings: Borderline heart size. Right basilar airspace disease, compatible with atelectasis or pneum onia. No pneumothorax. Small right pleural effusion. Impression: 1: Right basilar airspace disease may represent pneumonia and/or atelectasis. 2: Small right pleural effusion. Reviewed, dictated and finalized at location A. Impression: 1: Right basilar airspace disease may represent pneumonia and/or atelectasis. 2: Small right pleural effusion.
--- NOTE | 2025-05-04 10:01 | ECG_ITS ---
Test Date: 2025-05-04 10:04:13 Measurements Intervals [place] Rate: 152 P: 0 MT: 0 QRS: 92 QRSD: 106 T: 26 QT: 284 QTc: 452 Interpretive Statements ATRIAL FLUTTER/TACHYCARDIA WITH RAPID VENTRICULAR RESPONSE BORDERLINE RIGHT AXIS DEVIATION [QRS AXIS > 90] ST DEPRESSION, CONSIDER SUBENDOCARDIAL INJURY [0.1+ mV ST DEPRESSION] No previous ECG available for comparison Electronically Signed On 05-04-2025 15:58:01 CDT by Moriah Potter M.D.
[2025-05-04] MEDS: SODIUM CHLORIDE 0.9% IV 500 ML 999 ML IV CONT (10:11)
--- NOTE | 2025-05-04 10:19 | ECG_ITS ---
Test Date: 2025-05-04 10:28:36 Measurements Intervals [place] Rate: 73 P: 59 ID: [id number] QRS: 46 QRSD: 109 T: 40 QT: 393 QTc: 435 Interpretive Statements SINUS RHYTHM Compared to ECG 05/04/2025 10:04:13 Atrial flutter no longer present Electronically Signed On 05-04-2025 15:58:12 CDT by Moriah Potter M.D.
[2025-05-04 10:24] LABS: Hematocrit 47.4 % (37.0-46.0); Hemoglobin 15.8 g/dL (12.4-15.3); Immature Granulocyte Percent A 0.4 % (0.0-0.0); Lymphocytes Absolute Auto 0.98 K/mm3 (1.10-4.50); Mean Corpuscular HGB Conc 33.3 g/dL (32-36); Mean Corpuscular Hemoglobin 32.8 pg (27.0-31.0); Mean Corpuscular Volume 98.3 fL (78.0-102.0); Nucleated Red Blood Cells Absolute Auto 0.00 K/mm3 (0.00-0.00); Nucleated Red Blood Cells Perc 0.0 % (0-0.0); Platelet Count Result 208 K/mm3 (150-420); Red Blood Count 4.82 M/mm3 (4.70-6.10); White Blood Count 7.2 K/mm3 (4.8-10.8)
[2025-05-04 10:37] LABS: Alanine Aminotransferase 58 U/L (6-50); Albumin Level 4.1 g/dL (3.5-5.1); Alkaline Phosphatase 85 U/L (38-126); Anion Gap 5 mmol/L (4-12); Aspartate Amino Transferase 27 U/L (17-59); Bilirubin,Total 0.6 mg/dL (0.2-1.3); Blood Urea Nitrogen 21 mg/dL (9-20); Calcium 9.1 mg/dL (8.4-10.2); Carbon Dioxide 25 mmol/L (22-30); Chloride 108 mmol/L (98-107); Estimated CRCL calculation 59 ml/min; Estimated Glomerular Filt Rate > 60; Glucose 199 mg/dL (65-110); Osmolality Calculated 295 mOsm/kg (285-295); Potassium 3.7 mmol/L (3.4-5.0); Sodium 138 mmol/L (137-145); Total Protein 6.7 g/dL (6.3-8.2)
--- OUTSIDE RECORDS SUMMARY | 2025-05-04 10:41 | XMS_ITS | Clinical Summary ---
Author Organization [facility] Address [address] [place] [id number] Care Team Providers Care Pipe And Tank Fabricator Name Role Phone Unavailable Primary Care Provider [...] Td Vaccines ( 1 - Tdap) 1972 Pneumococcal Vaccine: 50+ Ye ars (1 of 1 - PCV) 2003 Zoster Vaccines (1 of 2) 2003 COVID-19 Vaccine ( - 2023-2 5 season) 2024 RSV Immunization or 60+ Years (1 [...]
[2025-05-04 10:49] LABS: NT Pro B Type Natriuretic Pept 100 pg/mL (19.9-100); Troponin I < 0.012 ng/mL (0.000-0.034)
[2025-05-04 11:08] LABS: Thyroid Stimulating Hormone 3.940 uIU/mL (0.465-4.680)
[2025-05-04 12:06] LABS: INR 1.1; Prothrombin Time 13.7 Seconds (11.1-14.7)
[2025-05-04 12:43] LABS: Troponin I 0.022 ng/mL (0.000-0.034)
--- NOTE | 2025-05-04 12:47 | ED_ITS ---
HPI - Syncope General Chief Complaint: Syncope Stated Complaint: syncope Time Seen by Provider: 05/04/25 10:36 Source: patient Mode of arrival: ambulatory Limitations: no limitations History of Present Illness HPI narrative: 69-year-old history hypertension diabetes, hyperlipidemia, PVD here with a complains having near syncopal episode while playing golf. Patient stated he bent over ,felt faint and fell and passed out for few secs ,now having fast heart beat and chest discomfort , Denies any previous H/O CAD or Afib. He Endorses Dr. Murillo as his Oven Dumper at [facility] . MD complaint: felt faint Onset (ago): minute(s) (30) -: second(s) (few) Prodromal symptoms: none Context: during exertion Injuries sustained associated with event: none Current symptoms: back to baseline Related Data Home Medications ?Medication ?Instructions ?Recorded ?Confirmed ?Last Taken ?Type B Complex-Vitamin B12 1 cap BYMOUTH DAILY 04/03/20 01/09/24 Unknown History finasteride 5 mg tablet 5 mg PO DAILY 04/03/20 01/09/24 Unknown History lamotrigine 200 mg tablet 100 mg PO DAILY 04/03/20 01/09/24 09/12/23 History levothyroxine 75 mcg tablet 75 mcg PO DAILY 04/03/20 01/09/24 Unknown History (Euthyrox) metoprolol succinate 100 mg 50 mg PO DAILY 04/03/20 01/14/24 01/14/24 History tablet,extended release 24 hr rosuvastatin 5 mg tablet 2.5 mg PO HS 04/03/20 01/09/24 Unknown History clopidogrel 75 mg tablet (Plavix) 75 mg PO DAILY 06/07/21 01/09/24 09/07/23 History amlodipine 2.5 mg tablet (Norvasc) 5 mg PO DAILY 09/02/23 01/09/24 Unknown History metformin 500 mg tablet 500 mg PO DAILY 09/02/23 01/09/24 Unknown History Allergies Allergy/AdvReac Type Severity Reaction Status Date / Time No Known Allergies Allergy Verified 05/04/25 10:19 Review of Systems 2 Review of Systems: All systems reviewed & are unremarkable except as noted in HPI and below Constitutional: Constitutional: Reports no additional constitutional complaints Eyes: Eyes: Reports no additional eye complaints ENT: Reports system reviewed and no additional complaints, except as documented Cardiovascular: Cardiovascular: Reports no additional cardiovascular complaints Respiratory: Respiratory: Reports no additional respiratory complaints Musculoskeletal: Musculoskeletal: Reports no additional musculoskeletal complaints Neurologic: Reports system reviewed and no additional complaints, except as documented [facility] Past Medical History Medical History Dyslipidemia Hypertension Hypothyroidism Type 2 diabetes mellitus BPH (benign prostatic hyperplasia) Peripheral vascular disease Surgical History Surgical History Popliteal artery stenosis Stent Social History Social History Smoking status: Former smoker Alcohol intake: current Alcohol use details: seldom Substance use: current Substance use type: marijuana Other substance usage details: used to do gummies Last use: 07/2023 Living arrangements: with family Spiritual care concerns: No Exam 2 Narrative: GENERAL: Well-appearing, well-nourished, and in no acute distress. HEAD: Normocephalic, atraumatic. EYES: PERRLA and EOMI. ENT: Nares clear, no rhinorrhea or epistaxis. Mucous membranes moist. NECK: Supple. CHEST: Clear to auscultation. No respiratory distress. HEART: Regular rate and rhythm. No murmur heard. Normal peripheral pulses. ABDOMEN: Soft, nontender, nondistended, normal active bowel sounds. EXTREMITIES: Normal range of motion. No edema. SKIN: Warm, dry, no rash. NEURO: No focal deficits. Alert and oriented x3. PSYCH: Normal mood and affect. Course Course Emergency Course: by the time I started the the ear itself the EKG was done converted to normal sinus rhythm treated he states he feeling much better. His cardiac workup was unremarkable. I discussed with Dr.Ed Cortez Cardiology at [facility] , pt can be discharged home on Eliquis and also recommended 30 day heart monitor . Patient remained asymptomatic while he was here in the ER. He feels comfortable going home. Vital Signs Vital signs: Vital Signs Temperature 35.9 C L 05/04/25 09:51 Pulse Rate 157 H 05/04/25 09:51 Respiratory Rate 21 H 05/04/25 09:51 Blood Pressure 116/91 H 05/04/25 09:51 Pulse Oximetry 98 05/04/25 09:51 Oxygen Delivery Room Air 05/04/25 09:51 Temperature 36.8 C 05/04/25 11:31 Pulse Rate 66 05/04/25 11:31 Respiratory Rate 14 05/04/25 11:31 Blood Pressure 121/75 05/04/25 11:31 Pulse Oximetry 96 05/04/25 11:31 Oxygen Delivery Room Air 05/04/25 09:51 MDM - Syncope Differential Diagnosis Differential diagnosis: Likely syncope due to orthostatic hypotension and complete atrioventricular block Medical Records Attestation: I reviewed the patient's medical records. Lab Data Attestation: I reviewed the patient's lab results. 05/04/25 10:11 05/04/25 10:11 Labs: Lab Results 05/04/25 05/04/25 Range/Units 10:11 12:16 WBC 7.2 (4.8-10.8) K/mm3 RBC 4.82 (4.70-6.10) M/mm3 Hgb 15.8 H (12.4-15.3) g/dL Hct 47.4 H (37.0-46.0) % MCV 98.3 (78.0-102.0) fL MCH 32.8 H (27.0-31.0) pg MCHC 33.3 (32-36) g/dL RDW 12.8 (11.6-14.4) % Plt Count 208 (150-420) K/mm3 MPV 9.8 (8.7-11.0) fl Immature Gran % (Auto) 0.4 H (0.0-0.0) % Neut % (Auto) 78.5 H (50.0-70.0) % Lymph % (Auto) 13.7 L (18.0-42.0) % Pendleton % (Auto) 5.6 (2.0-11.0) % Eos % (Auto) 1.0 (1.0-6.0) % Baso % (Auto) 0.8 (0.0-1.0) % Lymph # (Auto) 0.98 L (1.10-4.50) K/mm3 Pendleton # (Auto) 0.40 (0.10-0.90) K/mm3 Eos # (Auto) 0.07 (0.02-0.50) K/mm3 Baso # (Auto) 0.06 (0.00-0.10) K/mm3 Abs Immat Gran (auto) 0.03 H (0.00-0.00) K/mm3 Absolute Neuts (auto) 5.62 (1.70-7.20) K/mm3 Absolute Nucleated RBC 0.00 (0.00-0.00) K/mm3 Nucleated RBC % 0.0 (0-0.0) % PT 13.7 (11.1-14.7) Seconds INR 1.1 Sodium 138 (137-145) mmol/L Potassium 3.7 (3.4-5.0) mmol/L Chloride 108 H (98-107) mmol/L Carbon Dioxide 25 (22-30) mmol/L Anion Gap 5 (4-12) mmol/L BUN 21 H (9-20) mg/dL Creatinine 1.01 (0.7-1.3) mg/dL Estim Creat Clear Calc 59 ml/min Estimated GFR > 60 (59 - ) Glucose 199 H (65-110) mg/dL Calculated Osmolality 295 (285-295) mOsm/kg Calcium 9.1 (8.4-10.2) mg/dL Total Bilirubin 0.6 (0.2-1.3) mg/dL AST 27 (17-59) U/L ALT 58 H (6-50) U/L Alkaline Phosphatase 85 (38-126) U/L Troponin I < 0.012 0.022 D (0.000-0.034) ng/mL NT-Pro-B Natriuret Pep 100 (19.9-100) pg/mL Total Protein 6.7 (6.3-8.2) g/dL Albumin 4.1 (3.5-5.1) g/dL TSH 3.940 (0.465-4.680) uIU/mL Imaging Data Radiologist's impression: ITS Impressions Chest X-Ray 05/04/25 10:22 Impression: 1: Right basilar airspace disease may represent pneumonia and/or atelectasis. 2: Small right pleural effusion. ECG Data EKG #1: ECG completion date: 05/04/25 ECG completion time: 10:04 EKG Interpretation: tachycardia, atrial flutter (152), no ectopy, normal QRS and NL axis EKG #2: ECG completion date: 05/04/25 ECG completion time: 10:28 EKG Interpretation: normal rate (73), no ectopy, no ST changes, normal QT and NL axis Discharge Plan Discharge Clinical Impression: Paroxysmal atrial flutter Syncope Qualifiers: Syncope type: unspecified Qualified Code(s): R55 - Syncope and collapse Patient Disposition: Home Condition: Stable Instructions: Atrial Flutter (DC), Syncope (DC) Additional Instructions: Continue home medications ,advised to get a 30 day heart monitor .take Eliquis as directed please call 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 teacher theater arts for an appointment Patient Language: Emirati Prescriptions: New Eliquis 5 mg tablet 5 mg PO BID Qty: 14 0RF No Action B Complex-Vitamin B12 1 cap BYMOUTH DAILY lamotrigine 200 mg tablet 100 mg PO DAILY metoprolol succinate 100 mg tablet extended release 24 hr 50 mg PO DAILY levothyroxine [Euthyrox] 75 mcg tablet 75 mcg PO DAILY finasteride 5 mg tablet 5 mg PO DAILY rosuvastatin 5 mg tablet 2.5 mg PO HS clopidogrel [Plavix] 75 mg tablet 75 mg PO DAILY amlodipine [Norvasc] 2.5 mg tablet 5 mg PO DAILY metformin 500 mg Tablet 500 mg PO DAILY pantoprazole [Protonix] 40 mg tablet,delayed release (DR/EC) 40 mg PO QAM Qty: 90 3RF Follow-up/Referrals: Aroldo Stiles MD [Primary Care Provider] - Time of Disposition: 12:55
== END 2025-05-04 13:10 | disposition home or self-care (01) ==
PROVIDERS: Emergency Provider Family Medicine; PCP Internal Medicine
DX: I48.92 Unspecified atrial flutter (principal); R55 Syncope and collapse; I10 Essential (primary) hypertension; E11.9 Type 2 diabetes mellitus without complications; E78.5 Hyperlipidemia, unspecified; Z87.891 Personal history of nicotine dependence
CPT/HCPCS: 36415; 71045; 80053; 82948; 83880; 84443; 84484; 85025; 85610; 93005; 96374; 99284; J7030; J7040

== ENCOUNTER 2025-07-14 09:52 | Outpatient (CLI) | payer MEDICARE, SELFPAY ==
--- OUTSIDE RECORDS SUMMARY | 2025-07-14 10:38 | XMS_ITS | Clinical Summary ---
Author Organization [facility] Address [address] [place] [id number] Care Team Providers Care Flanging Operator Name Role Phone Unavailable Primary Care Provider [...] Vaccines (1 of 2) 2003 COVID-19 Vaccine (1 - 2023-2 5 season) 2025 RSV Immunization or 60+ Years (1 - [...]
--- OUTSIDE RECORDS SUMMARY | 2025-07-14 10:38 | XMS_ITS | Clinical Summary ---
Author Organization [facility] [address] [place] Address [address] [place] [address] Care Team Providers Care Floor Manager Name Role Phone Aroldo Stiles MD Primary Care Provider Allergies No known active allergies Medications predniSONE (DELTASONE) 10 mg tabletIndicati ons:Poison dorothy dermatitis Take 4 tablets days 1-3, take 3 tablets days 4-6, take 2 tablets days 7-9, take 1 tablet days 10-14 32 tablet 4 Active sildenafiL (Viagra) 50 mg tablet 1 tablet (50 mg total) 7 Active Crestor 5 mg tablet 0.5 tablets (2.5 mg total) 3 Active metoprolol XL (TOPROL-XL) 50 mg extended release tablet 5 Active metFORMIN (GLUCOPHAGE) 500 mg tablet 1 tablet (500 mg total) 3 Active levothyroxine (SYNTHROID) 25 mcg tablet Take 1 tablet (25 mcg total) by mouth daily Active glimepiride (AMARYL) 1 mg tablet Take 5 tablets (5 mg total) by mouth daily Active finasteride (PROSCAR) 5 mg tablet 1 tablet (5 mg total) 2 Active lamoTRIgine (LaMICtal) 200 mg tablet Take 1 tablet (200 mg total) by mouth daily Active famotidine (PEPCID) 20 mg tablet Take 1 tablet (20 mg total) by mouth 2 (two) times a day 6 Active dulaglutide (Trulicity) 4.5 mg/0.5 mL pen injector 0.5 mL (4.5 mg total) 3 Active clopidogreL (PLAVIX) 75 mg tablet See Instructions, 90 tablet(s), 3, 3, TAKE 1 TABLET BY MOUTH ONCE DAILY, Route to Pharmacy Electronically, [facility], [id number], Instructions Replace Required Details, 176, cm, 08/31/24 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, Height, 88, kg, 08/31/24 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, Weight 5 Active Eliquis 5 mg tablet Take 1 tablet (5 mg total) by mouth 2 (two) times a day Active amLODIPine (NORVASC) 5 mg tablet 1 tablet (5 mg total) 3 Active doxycycline (VIBRAMYCIN) 100 mg capsuleIndicat ions:Folliculi tis Take 1 tablet/capsule (100 mg total) by mouth 2 (two) times a day for 10 days 20 tablet/capsu le 5 06/21/20 25 Active Problems Problem Noted Date Diagnosed Date Stenosis of carotid artery 07/16/2013 Abnormal brain scan 06/03/2012 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 Anxiety 04/03/2012 Hypertension 04/03/2012 Benign prostatic hyperplasia 04/03/2012 Encounters Date Type Department Care Team Description 06/11/2025 7:00 PM CDT Office Visit [facility] at [address] [phone] Veronica Tay, ASIF Folliculitis (Primary Dx) from Last 3 Months Social History Tobacco Use Types Packs/Day Years Used Date Smoking Tobacco: Former Tobacco Cessation:Counseling Given: Not Answered Sex and Gender Information Value Date Recorded Sex Assigned at Not on file 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 Gender Identity Not on file Sexual Orientation Not on file Obstetrics History Last Filed Vital Signs Vital Sign Reading Time Taken Comments Blood Pressure 128/78 06/11/2025 7:17 PM CDT Pulse 92 06/11/2025 7:17 PM CDT Temperature 36.9 C (98.4 F) 06/11/2025 7:17 PM CDT Respiratory Rate 16 06/11/2025 7:17 PM CDT Oxygen Saturation 94% 06/11/2025 7:17 PM CDT Inhaled Oxygen Concentration - - Weight 87.5 kg (193 lb) 06/11/2025 7:17 PM CDT Height 177.8 cm (5' 10) 06/11/2025 7:17 PM CDT Body Mass Index 27.69 06/11/2025 7:17 PM CDT Plan of Treatment Health Maintenance Due Date Last Done Comments Colon Cancer Screening-Colonoscopy 1955 Depression Screening 1955 Fall Risk Assessment 1955 Hepatitis C Screening 1955 Hepatitis B Screening 1971 Zoster Vaccine (2 of 3) 08/28/2014 07/03/2014 Abdominal Aortic Aneurysm (A AA) Screen 2018 Well Visit 65+ 2018 Covid-19 Vaccine (5 - 2024-2 6 season) 2025 08/12/2023, 08/25/2021, 01/16/2021, Additional history exists Influenza Vaccine (#1) 2025 , 07/26/2022, 06/21/2021, Additional history exists DTaP/Tdap/Td Vaccine (3 - Td or Tdap) 12/26/2033 12/27/2023, 11/03/2013 Pneumococcal vaccine 65+ Completed 022, 10/26/2016, 10/18/2015, Additional history exists Insurance [facility] MEDICARE ADVANTAGE [facility] MEDICARE Address: [facility] [address] [place] [address] Care Teams Floor Manager Relationship Specialty Start Date End Date Aroldo Stiles MD [address] [place] [address] PCP - General 06/10/13
--- OUTSIDE RECORDS SUMMARY | 2025-07-14 10:38 | XMS_ITS | Clinical Summary ---
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 Gender Identity Not on file Sexual Orientation [...] 10:52 AM CDT Height 172.7 cm (5' 8) 01/13/2019 10:52 AM CDT Body Mass Index [...] Colorectal Cancer Screening 01/14/2024 INFLUENZA VACCINE (#1) 2025 RSV VACCINE (60+ or ) (1 - 1-dose 75+ series) 2028 Procedures Procedure Name Priority Date/Time Associated Diagnosis Comments COLONOSCOPY REPORT 01/13/2019 12 :37 PM CDT from Last 3 Months or Most Recently Relevant to Health Maintenance Results * COLONOSCOPY REPORT (01/13/2019 12:37 PM CDT) Narrative Procedure Note Meño Roach MD - 01/13/2019 12:36 PM CDT [facility] Endoscopy Patient Name: Marcos Wilson [...] Addenda: 0 Procedure Date: 01/13/2019 11:50:[address] [place] [id number] Meño Roach MD GI PROCEDURE ORDERABLES Final Re sult from Last 3 Months or Most Recently Relevant to Health Maintenance [place] [id number] Advance Directives For more information, please contact: [phone] * Full Code (Latest Code Status on File) Date Activated Date Inactivated Comments 01/13/2019 10:53 AM 01/13/2019 3:07 PM * Full Code Date Activated Date Inactivated Comments 12/13/2015 7:31 AM 12/13/2015 11:10 AM * Full Code Date Activated Date Inactivated Comments 10/17/2015 7:39 AM 10/17/2015 11:11 AM Care Teams Cigarette Maker Relationship Specialty Start Date End Date Aroldo Stiles MD [address] [place] [phone] PCP - General Internal Medicine 08/26/15
--- NOTE | 2025-07-21 10:45 | WPDPFTINT ---
PFT Procedure Performed PFT Procedure Performed Spirometry with Pre/Post Bronchodilator Plethysmography (Lung Vol) Diffusing Cap (DLCO) Flow Vol Loop PFT Interpretation DOS: 07/14/2025 REQUESTING: Zulay Lagunas MD REASON FOR TESTING: asthma, shortness of breath PULMONARY FUNCTION TESTS Results are reliable and reproducible. Repeatability of spirometry FEV1 maneuver pre and post bronchodilator is Grade A. GLI 2012 reference equations were used. Spirometry: The pre-bronchodilator FEV1 is 1.83 L, 62% predicted, decreased. The pre-bronchodilator FVC is 3.04 L, 79%. The FEV1/FVC ratio is 60%, reduced. After bronchodilator, the FEV1 is 2.01 L, 68%, 10% increase. After bronchodilator, the FVC is 3.31 L, 86%, 9% increase. The FEV1/FVC ratio is 61%. Lung volumes: The total lung capacity is 6.94 L, 111%. The forced residual capacity is 4.74 L, 138%. The residual volume is 3.90 L, 155%. The RV/TLC is 58%. Airway resistance is increased. Diffusion: DLCO is 19.2, 90%. The DLCO/VA is 3.67, 94%. These are normal values. Flow volume loop: The flow volume loop shows coving of the expiratory limb. IMPRESSION: This study shows moderate obstructive ventilatory impairment without statistically significant response to bronchodilator, moderate air trapping, and normal diffusion. Lack of response to bronchodilator should not preclude use if clinically indicated. There are no prior studies to compare. Donna Ham MD
--- NOTE | 2025-07-21 10:52 | WPDSIXMINUTE ---
Six Minute Walk Procedure Procedure Performed Pulmonary Stress Test (6 min walk) Six Minute Walk Six Minute Walk: DOS: 07/14/2025 REQUESTING: Anastasiya Lagunas MD REASON FOR TESTING: asthma, shortness of breath SIX MINUTE WALK This test was conducted per ATS guidelines. The initial saturation was 97%, and initial heart rate was 77 beats per minute. The patient walked without stopping, completing 335 m/1100 ft. The saturation at the end of testing was 94%, and the heart rate was 88 beats per minute. The lowest saturation during walking was 92%. The patient had leg pain at the end of testing. Toshia score for dyspnea and fatigue was 0 at the beginning of testing and 0 at the end of testing. IMPRESSION: This is a normal study. The patient did not require supplemental oxygen with exertion. No prior studies for comparison. Donna Ham MD
== END 2025-07-14 09:53 | disposition home or self-care (01) ==
PROVIDERS: PCP Internal Medicine; Visit Provider Internal Medicine
DX: R93.89 Abnormal findings on diagnostic imaging of other specified body structures (principal); J45.909 Unspecified asthma, uncomplicated; Z87.891 Personal history of nicotine dependence; G47.33 Obstructive sleep apnea (adult) (pediatric)
CPT/HCPCS: 94060; 94618; 94726; 94729

== ENCOUNTER 2025-07-21 07:18 | Outpatient (CLI) | payer MEDICARE, SELFPAY ==
--- NOTE | ~2025-07-21 | CT_ITS ---
EXAMINATION: CT abdomen pelvis wo/w con DATE: 07/21/2025 08:32 INDICATION: Microscopic hematuria. TECHNIQUE: Computed tomography (CT) of the abdomen and pelvis was performed without and with intravenous contrast using a total of 130 mL Omnipaque-350 intravenous contrast with a double-bolus technique for simultaneous opacification of the renal parenchyma and renal collecting system. Automated exposure control and iterative reconstruction technique were employed. The dose- length product was 946.89 mGy-cm. COMPARISON: None FINDINGS: The visualized portions of the lung bases demonstrate mild atelectasis. There is a 4 mm nodule in left lower lobe, likely benign. No pleural effusion. The heart size is normal. There are coronary artery calcifications. No pericardial effusion. There is a small sliding hiatal hernia. Calcifications in the liver and spleen are consistent with old edematous disease. The gallbladder, pancreas, and adrenal glands are normal. There are cysts in the kidneys measuring up to 2.3 cm on the right. There is no urolithiasis. The ureters are well opacified and are normal. The bladder is normal. The prostate is mildly enlarged. There is diverticulosis of the colon without evidence of diverticulitis. The appendix is normal. There are no dilated loops of bowel. There is a 3.3 cm fusiform aneurysm of infrarenal aorta. There is no free intraperitoneal fluid. There is mild thoracic and lumbar spondylosis. There is a 2.1 cm sclerotic lesion in right ilium. IMPRESSION: 1. No etiology for hematuria. 2. 3.3 cm fusiform aneurysm of infrarenal aorta. 3. 2.1 cm chronic lesion in proximal right ilium, probably a benign bone island in the absence of known malignancy. Consider bone scan. Reviewed, dictated and finalized at location E.
--- NOTE | ~2025-07-21 | US_ITS ---
EXAMINATION: US aorta [facility] scr[facility] DATE: 07/21/2025 08:01 INDICATION: Abdominal aortic aneurysm. TECHNIQUE: Grayscale, color Doppler, and pulsed Doppler images of the aorta and common iliac arteries were obtained. COMPARISON: Abdomen and pelvis 07/21/2025 FINDINGS: The aorta demonstrates a 3.5 cm fusiform infrarenal aneurysm. The right common iliac artery measures 2.0 cm. The left common iliac artery measures 2.0 cm. IMPRESSION: 1. 3.5 cm fusiform infrarenal aortic aneurysm. Reviewed, dictated and finalized at location E.
[2025-07-21 07:46] LABS: Estimated Glomerular Filt Rate > 60
== END 2025-07-21 07:19 | disposition home or self-care (01) ==
LOC: CHSIMG 07:20
PROVIDERS: PCP Internal Medicine; Visit Provider Internal Medicine
DX: I71.43 Infrarenal abdominal aortic aneurysm, without rupture (principal); R31.29 Other microscopic hematuria; M89.9 Disorder of bone, unspecified
CPT/HCPCS: 74178; 76706; Q9967

== ENCOUNTER 2025-10-04 05:55 | Day surgery (SDC) | payer MEDICARE, SELFPAY ==
[2025-09-22 10:27] VITALS: BMI 27.8
--- OUTSIDE RECORDS SUMMARY | 2025-10-04 06:13 | XMS_ITS | Clinical Summary ---
Author Organization [facility] [employer] Address [address] [facility] [place] [address] Care Team Providers Care Track Repairer Helper Name Role Phone Pcp, No Primary Care Provider [phone] Immunizations Immunization Administration Dates Next Due Pfizer Cominarty Covid-19 Prefilled Syringe (12+ yrs) 07/29/2025 Tdap 07/15/2025 Social History Tobacco Use Types Packs/Day Years Used Date Smoking Tobacco: Never Assessed Sex and Gender Information Value Date Recorded Sex Assigned at Not on file Legal Sex Male 8:05 PM EST Gender Identity Not on file Sexual Orientation Not on file Plan of Treatment Health Maintenance Due Date Last Done Comments Colorectal Cancer: COLONOSCO PY Screening every 10 yrs (or Modifier) 1955 Depression: Screening Annual ly using PHQ-2/9 in Adults 18 yrs or above (or HM Modifier)([facility]) 1971 Hepatitis C Virus Infection in Adolescents and Adults: Screening (or Modifier) ([facility]) 1971 SDNC Screening Reminder: Jailyn lester for all adults ([facility]) 1971 Tobacco Smoking Cessation: i n Adults excluding Women: Behavioral and Pharmacotherapy Interventions ([facility]) 1971 Colorectal Cancer Screening 45 -75 Yrs (or HM Modifier) 1998 Colorectal Cancer: FLEXIBLE SIGMOIDOSCOPY Screening every 5 yrs 1998 Colorectal Cancer: Fecal Imm unochemical Test (FIT) Annually [facility] 1998 Colorectal Cancer: High-sens itivity gFOBT Screening Annually [facility] 1998 Colorectal Cancer: Stool Col oguard Screening every 3 yrs 1998 Colorectal Cancer:CT Colonog regina Screening every 5 yrs 1998 Pneumococcal Vaccination Scr eening: Patients 50+ yrs of age ([facility]) (1 of 1 - PCV) 2003 Zoster/Shingles Vaccine Seri es Screening: Adults aged 18+ yrs (or HM Modifiers)([facility]) (1 of 2) 2003 Flu Vaccination: Ages 65+: Y early High Dose Recommended (or Modifier)([facility]) 05/14/2025 COVID-19 Vaccine Screening: Initial Series and Booster Status (CVS) (2 - 2024- season) 2026 07/29/2025 RSV Vaccines (1 - 1-dose 75+ series) 2028 DTaP/Tdap/Td Vaccines (CVS) (2 - Td or Tdap) 5 07/15/2025 Medical Devices Not on file Insurance [employer] MEDICARE Care Teams Track Repairer Helper Relationship Specialty Start Date End Date Pcp, Liset PCP - General Family Medicine 11/19/20
--- OUTSIDE RECORDS SUMMARY | 2025-10-04 06:13 | XMS_ITS | Clinical Summary ---
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 Active glimepiride (AMARYL) 1 mg tablet Take 5 mg by mouth daily with breakfast. Active famotidine (PEPCID) 20 mg tablet Take 1 Tablet (20 mg) by mouth 2 times daily. 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 Gender Identity Not on file Sexual Orientation [...] Roach MD - 01/13/2019 12:36 PM CDT [facility] Endoscopy Patient Name: Marcos [...] Addenda: 0 Procedure Date: 01/13/2019 11:50:[id number] [place] [id number] Meño Roach MD GI PROCEDURE ORDERABLES Final Re sult from Last 3 Months or Most Recently Relevant to Health Maintenance Insurance [facility] [id number] Advance Directives For more information, please contact: [phone] * Full Code (Latest Code Status on File) Date Activated Date Inactivated Comments 01/13/2019 10:53 AM 01/13/2019 3:07 PM * Full Code Date Activated Date Inactivated Comments 12/13/2015 7:31 AM 12/13/2015 11:10 AM * Full Code Date Activated Date Inactivated Comments 10/17/2015 7:39 AM 10/17/2015 11:11 AM Care Teams Human Resources Officer Relationship Specialty Start Date End Date Aroldo Stiles MD [address] [place] [phone] PCP - General Internal Medicine 08/26/15
--- OUTSIDE RECORDS SUMMARY | 2025-10-04 06:13 | XMS_ITS | Clinical Summary ---
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, Height, 88, kg, 08/31/24 11:30:00 AUTOMOTIVE PORTER, Weight 5 Active Eliquis 5 mg tablet Take 1 tablet (5 mg total) by mouth 2 (two) times a day Active amLODIPine (NORVASC) 5 mg tablet 1 tablet (5 mg total) 3 Active Active Problems Problem Noted Date Diagnosed Date Stenosis of carotid artery 07/16/2013 Abnormal brain scan 06/03/2012 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 Anxiety 04/03/2012 Hypertension 04/03/2012 Benign prostatic hyperplasia 04/03/2012 Social History Tobacco Use Types Packs/Day Years Used Date Smoking Tobacco: Former Tobacco Cessation:Counseling Given: Not Answered Sex and Gender Information Value Date Recorded Sex Assigned at Not on file 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
[2025-10-04 06:30] VITALS: BP 146/84; PULSE 65; RESP 18; TEMP 37; O2SAT 94
[2025-10-04] MEDS: LACTATED RINGERS 1,000 ML 150 ML IV CONT ×2 (06:35→08:59)
--- NOTE | 2025-10-04 07:21 | WPDANESEPPF ---
Anes - Initial Pre Proc Eval Procedure: Operation Date: 10/04/25 07:30 Proposed Procedures p Esophagogastroduodenoscopy - Andrey Quinn DO Date/Time: 10/04/25 07:21 Surgeon: Andrey Quinn DO Pre Op Diagnosis: Gerd, History of Esophageal Stricture Patient Data Age: 70 Gender: M Height: 1.78 m Weight: 92 kg Last Vital Signs Temp 98.6 F 10/04/25 06:30 Pulse 65 10/04/25 06:30 Resp 18 10/04/25 06:30 BP 146/84 H 10/04/25 06:30 Pulse Ox 94 10/04/25 06:30 O2 Del Method Room Air 10/04/25 06:30 Allergies Allergy/AdvReac Type Severity Reaction Status Date / Time No Known Allergies Allergy Verified 10/04/25 06:55 Home Medications ?Medication ?Instructions ?Recorded ?Confirmed ?Type finasteride 5 mg tablet 5 mg PO DAILY 04/03/20 10/04/25 History lamotrigine 200 mg tablet 100 mg PO DAILY 04/03/20 10/04/25 History levothyroxine 75 mcg tablet 75 mcg PO DAILY 04/03/20 10/04/25 History (Euthyrox) metoprolol succinate 100 mg 50 mg PO DAILY 04/03/20 10/04/25 History tablet,extended release 24 hr clopidogrel 75 mg tablet (Plavix) 75 mg PO DAILY 06/07/21 10/04/25 History metformin 500 mg tablet 500 mg PO DAILY 09/02/23 10/04/25 History amlodipine 10 mg tablet 10 mg PO DAILY 09/14/25 10/04/25 History atorvastatin 10 mg tablet 10 mg PO QPM 09/14/25 10/04/25 History dulaglutide 4.5 mg/0.5 mL 4.5 mg subcut WEEKLY 09/14/25 10/04/25 History subcutaneous pen injector (Trulicity) pantoprazole 40 mg tablet,delayed 40 mg PO DAILY #90 tabs 09/27/25 10/04/25 Rx release (Protonix) Laboratory Tests 10/04/25 06:41 POC Capillary Glucose 131 H mg/dl (65-105) Other studies: no chest pain,SOB WITH 1 flight of stairs and 4 blocks. Patient hx anesthesia problems: none Family hx anesthesia problems: none Results Review: All pre-operative results and documents have been reviewed as part of the pre-operative evaluation. [facility] Past Medical History Medical History (Updated 05/05/25 @ 00:01 by [place]) Dyslipidemia Hypertension Hypothyroidism Type 2 diabetes mellitus BPH (benign prostatic hyperplasia) Peripheral vascular disease Surgical History Surgical History Popliteal artery stenosis Stent Social History Social History Smoking packs per day: 1 Smoking cigarettes per day: 20.0 Years smoked: 50 Smoking pack-years: 50.00 Smoking status: Former smoker Tobacco type: cigarettes Additional smoking assessment comments: quit sometime around 2022 Alcohol intake: never Substance use: never Substance use type: does not use Other substance usage details: used to do gummies Last use: 07/2023 Living arrangements: alone Spiritual care concerns: No Anes - Eval Final PreProcedure Day of Procedure 10/04/25 07:21 Heart: regular rate and rhythm Lungs: clear to auscultation Airway: Mallampati scale class III Neurological: alert and oriented Last oral intake: >/= 8 hours ASA classification: III Anesthetic plan: proceed Anesthesia type and monitoring: general Results Review: All pre-operative results and documents have been reviewed as part of the pre-operative evaluation. Informed Consent: The patient's anesthetic plan and its attendant risks and benefits were discussed with the patient/family/POA. Questions were solicited and answers provided to the satisfaction of the patient/family/POA.
--- NOTE | 2025-10-04 07:22 | PM.IMHP2 ---
H&P: HPI History of Present Illness Date/Time: 10/04/25 07:22 Chief Complaint: Gomez's esophagus Narrative: 70 yo man presents for EGD. 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 Only has occasional GERD symptoms at this point. Denies dysphagia. No hematemesis or other symptoms. Review of Systems Review of Systems: All systems reviewed & are unremarkable except as noted in HPI and below Constitutional: Constitutional: Denies chills, Denies fever(s), Denies headache(s) and Denies weight loss Eyes: Eyes: Denies change in vision ENT: Denies dizziness, Denies headache(s), Denies neck mass and Denies throat swelling Cardiovascular: Cardiovascular: Denies chest pain, Denies lightheadedness and Denies dyspnea Respiratory: Respiratory: Denies cough, Denies dyspnea and Denies wheezing Gastrointestinal: Gastrointestinal: Denies abdominal pain, Denies change in bowel habits, Denies nausea and Denies vomiting Genitourinary: Genitourinary: Denies hematuria and Denies dysuria Musculoskeletal: Musculoskeletal: Reports as per HPI Integumentary/Breasts: Skin/Breast: Reports as per HPI Neurologic: Denies dizziness and Denies headache(s) Allergic/Immunologic: Allergic/Immunologic: Denies throat swelling and Denies wheezing [facility] Past Medical History Medical History (Updated 10/04/25 @ 07:24 by Andrey Quinn DO) Dyslipidemia Hypertension Hypothyroidism Type 2 diabetes mellitus BPH (benign prostatic hyperplasia) Peripheral vascular disease Surgical History Surgical History Popliteal artery stenosis Stent Social History Social History Smoking packs per day: 1 Smoking cigarettes per day: 20.0 Years smoked: 50 Smoking pack-years: 50.00 Smoking status: Former smoker Tobacco type: cigarettes Additional smoking assessment comments: quit sometime around 2022 Alcohol intake: never Substance use: never Substance use type: does not use Other substance usage details: used to do gummies Last use: 07/2023 Living arrangements: alone Spiritual care concerns: No Meds Home Medications and Allergies Home Medications ?Medication ?Instructions ?Recorded ?Confirmed ?Type finasteride 5 mg tablet 5 mg PO DAILY 04/03/20 10/04/25 History lamotrigine 200 mg tablet 100 mg PO DAILY 04/03/20 10/04/25 History levothyroxine 75 mcg tablet 75 mcg PO DAILY 04/03/20 10/04/25 History (Euthyrox) metoprolol succinate 100 mg 50 mg PO DAILY 04/03/20 10/04/25 History tablet,extended release 24 hr clopidogrel 75 mg tablet (Plavix) 75 mg PO DAILY 06/07/21 10/04/25 History metformin 500 mg tablet 500 mg PO DAILY 09/02/23 10/04/25 History amlodipine 10 mg tablet 10 mg PO DAILY 09/14/25 10/04/25 History atorvastatin 10 mg tablet 10 mg PO QPM 09/14/25 10/04/25 History dulaglutide 4.5 mg/0.5 mL 4.5 mg subcut WEEKLY 09/14/25 10/04/25 History subcutaneous pen injector (Trulicity) pantoprazole 40 mg tablet,delayed 40 mg PO DAILY #90 tabs 09/27/25 10/04/25 Rx release (Protonix) Allergies Allergy/AdvReac Type Severity Reaction Status Date / Time No Known Allergies Allergy Verified 10/04/25 06:55 Vital Signs Vital Signs - 24 hr 10/04/25 06:30 Temperature 98.6 F Pulse Rate 65 Respiratory Rate 18 Blood Pressure 146/84 H Pulse Oximetry 94 Oxygen Delivery Room Air Exam Const: General: no acute distress and alert Orientation/consciousness: patient oriented x3 HENMT: Head: normocephalic and atraumatic Ears: hearing grossly normal bilaterally Face/Nose/Sinus: Normal nares present Mouth: Yes Normal oral and palatal mucosa present Eyes: Periorbital: periorbital findings normal Sclera: sclerae normal EOM: EOMs intact bilaterally Neck: Neck: normal visual inspection, no lymphadenopathy and trachea midline Chest: Chest palpation & inspection: normal inspection of the chest Resp: Effort & Inspection: normal respiratory effort Auscultation: clear to auscultation bilaterally Cardio: Jugular venous distension: no JVD Rate: regular rate Rhythm: regular rhythm Heart sounds: S1 normal heart sound present and S2 normal heart sound present Peripheral pulses: Peripheral pulses 2+ throughout GI: Inspection: normal to inspection GI Palp: Yes Soft to palpation, No Tenderness to palpation present (GI), No Guarding due to palpation present (GI) and No Rebound tenderness present Percussion: Yes normal to percussion Auscultation: normal bowel sounds : General: Yes no CVA tenderness Back/Spine/Pelvis: Back: no CVA tenderness Neuro: General: patient oriented x3, no focal motor deficits and CN's II-XI intact bilaterally Cognition (Neuro): normal cognition Speech: normal speech Motor exam (neuro): 5/5 motor strength present throughout Extrem: General: capillary refill normal and no clubbing, cyanosis or edema Assessment and Plan Assessment and plan (1) Gomez esophagus: Qualifiers: Gomez's esophagus type: without dysplasia Qualified Code(s): K22.70 - 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 I have discussed the procedure, risks, benefits, and alternatives. Questions were answered. Patient is agreeable to proceed.
--- NOTE | 2025-10-04 07:43 | WPDANESPN ---
Anes - Prog Note Post-Op Date/Time: 10/04/25 07:43 Vital Signs: Last Vital Signs Temp 98.6 F 10/04/25 06:30 Pulse 65 10/04/25 06:30 Resp 18 10/04/25 06:30 BP 146/84 H 10/04/25 06:30 Pulse Ox 94 10/04/25 06:30 O2 Del Method Room Air 10/04/25 06:30 Pain Score (VAS): no I/O: Intake & Output 10/03/25 10/03/25 10/04/25 15:59 23:59 07:59 Intake Total 100 Balance 100 10/04/25 06:41 POC Capillary Glucose 131 H Patient Feedback: Patient satisfied with anesthetic care.
[2025-10-04 07:46] VITALS: BP 112/70; PULSE 68; RESP 16; O2SAT 97
[2025-10-04 07:56] VITALS: BP 115/73; PULSE 60; RESP 15; O2SAT 92
[2025-10-04 08:06] VITALS: BP 129/75; PULSE 58; RESP 15; O2SAT 95
== END 2025-10-04 08:25 | disposition home or self-care (01) ==
PROVIDERS: PCP Internal Medicine; Visit Provider Surgery
PROC: 0DJ08ZZ Inspection of Upper Intestinal Tract, Via Natural or Artificial Opening Endoscopic (ICD-10-PCS; CPT 43239; principal; 2025-10-04 07:30)
DX: K22.70 Barrett's esophagus without dysplasia (principal)
CPT/HCPCS: 43239

== ENCOUNTER 2025-10-04 07:53 | Outpatient (NON) | payer MEDICARE, SELFPAY ==
--- NOTE | 2025-10-04 | S_PTH ---
PATIENT: Marcos Wilson LOC: [facility]#:[id number] AGE/SX: 70/M ROOM: RE10/04/[address]: Andrey Quinn DO : 1955 BED: DIS: 10/04/2025 SPEC #: [id number] RECD: 10/05/25 08:13 STATUS: RAJENDRA REQ #: [id number] CANDE: 10/04/25 00:[address]: Andrey Quinn DEPT: [facility] Surgical RECD BY: Alina Dinero ENTERED: 10/05/25 08:14 SP TYPE: Surgical OTHR DR: Aroldo Stiles MD Tissues: A - Gastric Biopsy Procedures: Hematoxylin and Eosin Stain Gross and Microscopic Level 4
--- OUTSIDE RECORDS SUMMARY | 2025-10-05 07:56 | XMS_ITS | Clinical Summary ---
Author Organization [facility] Address [address] [place] [address] Care Team Providers Care Data Reporting Analyst Name Role Phone Unavailable Primary Care Provider [...] of 2) 2003 COVID-19 Vaccine (1 - 2024-2 6 season) 2025 Influenza Adult (#1) 2025 RSV Immunization or 60+ Years (1 - 1-dose 75+ series) 2028 Hepatitis A Vaccines Aged Out No long er eligible based on patient's age to complete this topic Meningococcal B Vaccine Aged Out No l onger eligible based on patient's age to complete this topic Meningococcal Vaccine Aged Out No marlon wendy eligible based on patient's age to complete this topic RSV Immunizations Under 20 Months Aged Out No longer eligible based on patient's age to complete this topic
--- OUTSIDE RECORDS SUMMARY | 2025-10-05 07:56 | XMS_ITS | Clinical Summary ---
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 MEDICARE ADVANTAGE [facility] MEDICARE Address: [facility] [id number] [place] [id number] Care Teams Linux Network Administrator Relationship Specialty Start Date End Date Aroldo Stiles MD [address] [place] [address] PCP - General 06/10/13
--- OUTSIDE RECORDS SUMMARY | 2025-10-05 07:56 | XMS_ITS | Clinical Summary ---
Author Organization [facility] Address [address] [facility] [place] [address] Care Team Providers Care Recoverer Name Role Phone Pcp, No Primary Care Provider [phone] Immunizations Immunization Administration Dates Next Due Pfizer [...] Adults 18 yrs or above (or HM Modifier)([facility]) 1971 Hepatitis C Virus Infection in Adolescents and Adults: Screening (or Modifier) ([facility]) 1971 SDDE Screening Reminder: Jailyn lester for all adults ([facility]) 1971 Tobacco Smoking Cessation: i n Adults excluding Women: Behavioral and Pharmacotherapy Interventions ([facility]) 1971 Colorectal Cancer Screening 45 -75 Yrs (or HM Modifier) 1998 Colorectal Cancer: FLEXIBLE SIGMOIDOSCOPY Screening every 5 yrs 1998 Colorectal Cancer: Fecal Imm unochemical Test (FIT) Annually [facility] 1998 Colorectal Cancer: High-sens itivity gFOBT Screening Annually [facility] 1998 Colorectal Cancer: Stool Col oguard Screening every 3 yrs 1998 Colorectal Cancer:CT Colonog regina Screening every 5 yrs 1998 Pneumococcal Vaccination Scr eening: Patients 50+ yrs of age ([facility]) (1 of 1 - PCV) 2003 Zoster/Shingles Vaccine Seri es Screening: Adults aged 18+ yrs (or HM Modifiers)([facility]) (1 of 2) 2003 Flu Vaccination: Ages 65+: Y early High Dose Recommended (or Modifier)([facility]) 05/14/2025 COVID-19 Vaccine Screening: Initial Series and Booster Status ([facility]) (2 - 2024- season) 2026 07/29/2025 RSV Vaccines (1 - 1-dose 75+ series) 2028 DTaP/Tdap/Td Vaccines ([facility]) (2 - Td or Tdap) 5 07/15/2025 Medical Devices Not on file Insurance [employer] MEDICARE Care Teams Recoverer Relationship Specialty Start Date End Date Pcp, Liset PCP - General Family Medicine 11/19/20
--- OUTSIDE RECORDS SUMMARY | 2025-10-05 07:56 | XMS_ITS | Clinical Summary ---
Author Organization [facility] Address [address] [place] [phone] Phone Care Team Providers Care Media Sales Representative Name Role Phone Aroldo Stiles MD Primary [...] tablet Take 25 mcg by mouth daily early childhood education coordinator. 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 Gender Identity Not on file Sexual Orientation [...] Roach MD - 01/13/2019 12:36 PM CDT [facility] Endoscopy Patient Name: Marcos Wilson [...] Addenda: 0 Procedure Date: 01/13/2019 11:50:[id number] [place] [id number] Meño Roach MD GI PROCEDURE ORDERABLES Final Re sult from Last 3 Months or Most Recently Relevant to Health Maintenance Insurance [facility] [id number] Advance Directives For more information, please contact: [phone] * Full Code (Latest Code Status on File) Date Activated Date Inactivated Comments 01/13/2019 10:53 AM 01/13/2019 3:07 PM * Full Code Date Activated Date Inactivated Comments 12/13/2015 7:31 AM 12/13/2015 11:10 AM * Full Code Date Activated Date Inactivated Comments 10/17/2015 7:39 AM 10/17/2015 11:11 AM Care Teams Media Sales Representative Relationship Specialty Start Date End Date Aroldo Stiles MD [address] [place] [phone] PCP - General Internal Medicine 08/26/15
== END 2025-10-04 07:54 | disposition home or self-care (01) ==
LOC: ANHLAB 10-05 07:54
PROVIDERS: PCP Internal Medicine; Visit Provider Surgery
DX: K22.70 Barrett's esophagus without dysplasia (principal)
CPT/HCPCS: 88305